=== PATIENT | male | born 1955 | race Caucasian/White ===

== ENCOUNTER 2017-03-02 12:41 | Emergency (ER) | payer MEDICAID ==
[~2017-03-02] VITALS: Ht 177.8 cm; Wt 136.1 kg
[~2017-03-02 12:41] MED LIST: DILANTIN 100MG100 MG PO; FLEXERIL10 M1 PO; FUROSEMIDE 40MG40 M1 PO; KEFLEX 500MG.500 MG PO; LISINOPRIL10 MG PO; LORTAB 500 MG-71 TAB PO; MYSOLINE50 M1 PO; PHENOBARBITAL16.2 MG PO; SEPTRA DS 800 M1 TAB PO; VICODIN 5/500 T1 TAB PO; VOLTAREN75 MG PO
[2017-03-02] MEDS ORDERED: KEPPRA250 MG PO (12:51)
[2017-03-02] MEDS ORDERED: KEPPRA750 MG PO (12:52)
--- NOTE | 2017-03-02 12:53 | Emergency Room Report ---
History of Present Illness Time Seen by [id number] Presenting Problem in Triage Pt arrived:Wheelchair Presenting Problem:PT REPORTS FEELING WEAK X3 DAYS, REPORTS HEADACHE X2 DAYS. 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 N Clinical Suspician of Infection? N Mental Status: 1 - Regular (Normal Baseline) Sepsis Risk:Low Sepsis Risk Have you (or family members/close friends) recently traveled outside the [place]? N If Yes, where/when: Have you had exposure to infectious disease within the past month? N TB? Other? Specify: reports that patient has become progressively weak and confused in the past two weeks, worse over the past two days. He did not eat today. He is not diabetic, but she had a glucometer at home and states his blood sugar was normal. Over the past three days he has been having episodes where he can only walk a few steps then feels diffusely weak, and overall having gaps in memory. He had a headache the last few days, nonfocal, with no unilateral neurological symptoms, and seemed more confused this morning. He has a hx of sz d/o, last sz in 2012, usually tonic clonic, patient at Dr. Rajan, taken off Phenobarb and Dilantin six months ago and placed on Keppra with no recent change in dosing or administratioin. No fever or vomiting, no chest pain. No cough. No omar syncope. Usually ambulates unassisted. ROS obtained primarily from . Source family ALLERGIES Coded Allergies: penicillin G (09/05/15) Home Medications Reported Medications Lisinopril 10 MG PO DAILY 90 Days Furosemide 40 MG PO DAILY 90 Days Levetiracetam (Keppra 750MG) 750 MG PO BID HYDROCODONE 5MG/APAP 325MG (Hydrocodon-Acetaminophen 5-325) 1 TAB PO Q6HP PRN PAIN History Medical History General CAD? No Angina: No NV: No Hypertension? Yes Hyperlipidemia? No CHF? No DVT? No PE? No COPD? No Asthma? No Anemia? No GERD? No Gastric ulcers? No GI Bleed? No Hernia? No Thyroid Problems? No Hypothyroidism? No CVA? No Seizures? Yes Diabetes? No Insulin Dependent: No Insulin Pump: No Home FSBS? No Renal Insuffiency? No End Stage Renal Disease? No UTI? No Stones? No BPH? No GB Disease: No Nephritic Syndrome? No Asplenia? No Hepatitis? No Sickle Cell Disease? No Arthritis? No Migraines? No Cataracts? No Glaucoma? No MRSA? No HIV? No TB? No Anxiety? No Depression? No Cancer? No More? 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" Immunization Hx DT/Tetanus 08/27/05 Flu 2YRSorMore Pneumonia NEVER Surgical Hx Previous Surgery?Y T&A REMOVAL OF PILONIDOL CYST RIGHT ANKLE Family History Family Hx Diabetes No CAD Yes Hypertension Yes Hyperlipidemia No Cancer No TB No Social History Smoking Hx Smoker: Former Smoker Tobacco: No Alcohol Alcohol: No Review of Systems All Other Systems Reviewed and Negative Musculoskeletal see HPI Psychiatric/Neurological see HPI Physical Exam Vital Signs Vital Signs Date Time Temp Pulse Resp B/P Pulse O2 O2 Flow FiO2 Ox Delivery Rate 03/02 1505 98.2 64 20 166/87 97 03/02 1445 77 20 142/72 99 03/02 1406 81 20 165/99 97 03/02 1341 72 20 141/69 97 03/02 1245 98.4 73 20 156/75 96 General Appearance normal appearance, WD/WN, no apparent distress Eye Exam - bilateral eye normal exam, bilateral eye PERRL, bilateral eye EOMI (no diplopia or field cuts) Ear, Nose, Throat hearing grossly normal (port wine stains face) Neck normal inspection, non-tender, supple, full range of motion Respiratory Status Yes: trachea midline, chest symmetrical, non tender chest. No: respiratory distress, tender on palpation, use of accessory muscles, pain on inspiration, pain on expiration, productive cough, non productive cough. Lung Sounds bilateral: normal breath sounds, lungs clear. 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 Glascow Coma Scale Glascow Coma Scale Response Value EYE response: 4 Spontaneously 4 MOTOR response: 6 OBEYS 6 VERBAL response: 5 Oriented & Converses 5 Total 15 Reflexes Reflexes normal No DTR 2+ knee (R), 2+ knee (L), 1+ ankle (R), 3+ ankle (L) (hx ankle surgery) Skin intact, normal color, warm/dry (port wine stains neg rash) Medical Decision Making LABS/Meds/Orders Pt receiving controlled substance in ED? No Results/Orders Laboratory Tests 03/02/17 1355: Urine Color YELLOW, Urine Appearance CLEAR, Urine pH 6.5, Ur Specific [place] 1.025, Urine Protein TRACE H, Urine Ketones NEGATIVE, Urine Blood NEGATIVE, Urine Nitrate NEGATIVE, Urine Bilirubin NEGATIVE, Urine Urobilinogen 0.2, Ur Leukocyte Esterase NEGATIVE, Urine RBC NONE, Urine WBC NONE, Ur Squamous Epith Cells NONE, Urine Bacteria NONE, Urine Glucose NEGATIVE 03/02/17 1255: Phenobarbital Cancelled 03/02/17 1245: Sodium 133 L, Potassium 3.7, Chloride 100, Carbon Dioxide 28, BUN 15, Creatinine 0.8, Estimated Creat Clear 182, Estimated GFR (MDRD) 98, Glucose 112 H, Calcium 9.0, Total Bilirubin 0.6, AST 15, ALT 30, Alkaline Phosphatase 134 H , Creatine Kinase 77, CK-MB (CK-2) Rel Index 0.8, CK and CKMB Interp 0.6, Troponin I < 0.02, Total Protein 7.9, Albumin 3.7, Globulin 4.2 H, Albumin/ Globulin Ratio 0.9 L, WBC 10.0, RBC 4.44 L, Hgb 13.2 L, Hct 39.9 L, MCV 89.9 , RDW 13.2, Plt Count 296, MPV 7.9, Gran % 76.2, Gran # 7.6, Lymphocytes % 17.3, Monocytes % 5.7, Eosinophils % 0.6, Basophils % 0.3, Lymphocytes # 1.7, Monocytes # 0.6, Eosinophils # 0.1, Basophils # 0.0, PUBS MCHC 33.0, MCH 29.7 Orders Procedure Date/time Status DIET-NOTHING BY MOUTH 03/02 D Active URINALYSIS/COMPLETE 03/02 1358 Complete ELECTROCARDIOGRAM REQUEST 03/[address] HEAD REQ 03/02 125 Complete IV SALINE LOCK 03/02 1255 Active CBC WITH AUTO DIFF 03/02 1255 Complete CARDIAC ENZYMES 03/02 1255 Complete CHEM 12 PROFILE 03/02 125 Complete 12 LEAD EKG-TATI (INITIAL) 03/02 UNK Active CM/EKG CM/EKG EKG rate, NSR, rhythm, no evid. of ischemic chgs, no ectopy, normal QRS, normal TX, normal EKG (NSR 72) XRAY/CT/US XRAY/CT/US XRAY chest XR interpretation by reviewed by me Xray Results normal/NAD, no infiltrates, normal lung inflation [place] ( borderline CM vs supine view) Consult MD Physician Consult Consult/PCP Dr. Sharma neuro accepting for transfer Reason Neuro eval/care Comments paged. Departure Departure Time of Disposition 1433 Disposition DC/XFER from ER to [facility] Clinical Impression Primary Impression: Amnesia Secondary Impressions: History of seizure Mental status change Qualifiers: Altered mental status type: somnolence Qualified Code: R40.0 - Somnolence Condition STABLE ED Critical Care Critical Care No at [id number]
[2017-03-02] MEDS ORDERED: HYDROCODONE1 TABLET PO (12:54)
[2017-03-02 13:02] LABS: HEMOGLOBIN 13.2 g/dL (14.1-18.0); LYMPH # 1.7 K/mm3 (0.7-4.5); LYMPH % 17.3 % (10-50)
[2017-03-02 13:25] LABS: BUN 15 mg/dL (7-18)
[2017-03-02 13:40] LABS: GFR (ESTIMATED) 98 ML/MIN (>60)
--- NOTE | 2017-03-02 13:41 | RADIOLOGY REPORT PS360 ---
CT HEAD W/O CONTRAST HISTORY: No change, generalized weakness with slurred speech CHANGE IN MS X 3 DAYS ORDERING PHYSICIAN: Ines Arrgeuin MD PATIENT AGE: 61 years COMPARISON: 04/03/2015 the TECHNIQUE: Axial images obtained without contrast. Brain and bone windows reviewed. FINDINGS: No midline shift, mass effect, intracranial hemorrhage, hydrocephalus, or extra-axial fluid collection is evident. Dense calcification is once again noted involving the left frontal lobe, left occipital lobe, and left occipital parietal region. This is similar when compared to the previous exam. There is mild thickening of the left side of the calvarium. No mastoid effusion or sinus air-fluid level. Lobular soft tissue density is present in the right maxillary sinus nonspecific measuring 10 mm. IMPRESSION: 1. No change with no acute finding. 2. Dense cortical calcification as previously described unchanged. This may be seen with arteriovenous malformation or Sturge-Benz syndrome or could be result of prior hemorrhage, trauma, or infarction. 3. There is no evidence of acute intracranial hemorrhage, focal mass, or acute territorial infarction. A negative CT does not exclude an acute CVA. A follow-up head CT or MRI is recommended if neurological symptoms persist
[2017-03-02 14:09] LABS: URINE BILIRUBIN - DIPSTICK NEGATIVE (NEG); URINE BLOOD NEGATIVE (NEG)
--- NOTE | 2017-03-02 14:25 | RADIOLOGY REPORT PS360 ---
CHEST-PORTABLE HISTORY: Shortness of breath, mental status change change mental status ORDERING PHYSICIAN: Ines Arreguin MD PATIENT AGE: 61 years COMPARISON: To 416 FINDINGS: The cardiomediastinal silhouette and pulmonary vascularity are within normal limits. There are low lung volumes. There is slight increased density in the mid and lower lung zones bilaterally which may be reflection of the poor inspiration. Cannot exclude the possibility of infiltrate. Upright PA and lateral chest may be of further value when the patient can tolerate. No acute bony anomalies. IMPRESSION: Low lung volumes with patchy density in the mid and lower lung zones. Cannot exclude underlying alveolar disease radiographically.
[2017-03-02 15:05] VITALS: BP 166/87
--- OUTSIDE RECORDS SUMMARY | 2017-03-06 05:17 | External Medical Summary Rpt | CCD ---
Author Author , PRADEEP Organization PRADEEP Address Unknown Phone [email or web address] Care Team Providers [facility] Supervisor Name Role Phone A Gabriel VALDOVINOS MD PSC, Petey Unavailable Unavailable Gabriel VALDOVINOS MD PSC ARNOLD KAYCE, ARNOLD Unavailable Unavailable KAYCE ARNOLD KAYCE, ARNOLD Unavailable Unavailable KAYCE BESSON MERVAT, BESSON Unavailable Unavailable MERVAT [facility], [facility] Unavailable Unavailable [facility] Unavailable Unavailable [facility] Unavailable Unavailable SERVICE, [facility] TRES JR, TRES Unavailable Unavailable JR TRES JR, TRES Unavailable Unavailable JR TRES JR CARRIE, Unavailable Unavailable TRES JR CARRIE FEEBACK REE, FEEBACK Unavailable Unavailable REE LEAH NIRAV, LEAH Unavailable Unavailable NIRAV [facility] Unavailable Unavailable INC, [facility] Unavailable Unavailable HOSPITAL P, [facility] BRET QUEEN Unavailable Unavailable BRET TARIQ Unavailable Unavailable OSMAR [facility], Unavailable Unavailable [facility] JOSE L III, JOSE L Unavailable Unavailable III [facility] Un[facility] Unavailable GROUP PS, [facility] Un[facility] Unavailable [facility], [facility] KHAWARI, KHAWARI Unavailable Unavailable KHAWARI MAR, KHAWARI Unavailable Unavailable MAR KILPELA, KILPELA Unavailable Unavailable KILPELA JEA, KILPELA Unavailable Unavailable JEA DERREK DEBORAH, DERREK DEBORAH Unavailable [facility]available [facility] Un[facility], [facility] Unavailable [facility]available [facility], [facility] DIGNA, DIGNA Unavailable Unavailable Herbie Nicolas MD, Unavailable Unavailable Herbie [facility], Unavailable Unavailable [facility], [facility], Unavailable Unavailable [facility] ABDON JENNA, ABDON JENNA Unavailable Unavailable SOTINGEANU IVY, Unavailable Unavailable SOTINGEANU IVY VINAY HENRRY, VINAY Unavailable Unavailable HENRRY SUREKHA KAYCE, SUREKHA Unavailable Unavailable [facility] Un[facility], [facility], Unavailable Unavailable [facility] WALKER FOR, WALKER Unavailable Unavailable FOR YAMIL NIRAV, YAMIL Unavailable Unavailable NIRAV Purpose Continuity of Care Document - 02-09-2013 through 2016 Problems Code Diagnosis DOS Provider Status M2550 PAIN IN 12-28-2016 [place] [facility] M4810 ANKYLOSING 12-28-2016 [place] [facility] HYPEROSTOSI [facility] S SITE [facility] UNSPECIFIED Z791 CUSTODIAL 12-28-2016 [facility] MEDICAL CURR SERV NON-STEROID FOUNDATION AL&ANTI-INF LAMMATORIES [id number] LOC-REL SX 12-24-2016 [facility] W/SPS HOSPITALS INTRACT W/O STAT EPI Q858 OTHER 12-24-2016 [facility] S NOT HOSPITALS ELSEWHERE CLASSIFIED H4089 OTHER 10-21-2016 A Gabriel FERRER MD PSC [place] H409 UNSPECIFIED 10-21-2016 A Gabriel VALDOVINOS [place] PSC U72669 OTHER 10-01-2016 [facility] [place] VITREOUS OPACITIES BILATERAL Z961 PRESENCE OF 10-01-2016 [facility]ES INTRAOCULAR LENS R208 OTHER 09-10-2016 [facility] SENSATION M779 ENTHESOPATH 07-02-2016 [facility] MEDICAL Y SERV UNSPECIFIED FOUNDATION J9811 ATELECTASIS 06-03-2016 [facility] R918 OTHER 06-03-2016 [facility] NONSPECIFIC [facility] ABNORMAL HOSPITALS FINDING OF LUNG FIELD M7989 OTHER 04-29-2016 [place] [facility] SPEC[facility] SOFT TISSUE FOUNDATION DISORDERS G95162 OTHER LONG 04-29-2016 [facility] CURRENT HOSPITALS DRUG THERAPY M160 BILATERAL 03-31-2016 [facility] OSTEOARTHRI FOUNDATION TIS OF HIP M170 BILATERAL 03-31-2016 [facility] OSTEOARTHRI FOUNDATION TIS OF KNEE M1990 UNSPECIFIED 03-31-2016 [facility] OSTEOARTHRI [facility] TIS UNSPECIFIED SITE J80492 EFFUSION 03-31-[address] [facility] HAND R768 OTH SPEC 03-31-2016 [facility] IMMUNOLOGIC AL FIND IN SERUM R809 PROTEINURIA 03-31-2016 [place] [facility] UNSPECIFIED [facility] Z0000 ENCOUNTER 03-31-2016 [facility] W/O ABNORMAL FIND 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 [place] [facility] NON-NEOPLAS SERV TIC NEVUS [facility] R0602 SHORTNESS 02-25-2016 [facility] OF BREATH SERV [facility] R0789 OTHER CHEST 02-25-2016 [facility] PA[facility] Z8679 PERSONAL 02-25-2016 [facility] H[facility] OTH SERV DISEASES FOUNDATION CIRCULATORY SYSTEM D229 MELANOCYTIC 02-07-2016 A Gabriel MCQUEEN MD PSC UNSPECIFIED I10 ESSENTIAL 12-31-2015 [facility] HYPERTENSIO HOLDINGS N R569 UNSPECIFIED 12-31-2015 [facility] CONVULSIONS HOLDINGS Z61811 EFFUSION 11-26-2015 [facility] R609 EDEMA 11-26-2015 [facility] UNSPECIFIED [facility]ICIANS, PLLC F44178 PERSONAL 11-26-2015 [facility] NICOTINE INC DEPENDENCE K95467 EPILEPSY 11-04-2015 [facility] UNS NOT PHYSICIANS INTRACT W/O GROUP STATUS EPILEPTICUS R9401 ABNORMAL 09-18-2015 [facility] PHALOGRAM EEG Z1211 ENCOUNTER 09-05-2015 [facility] SCREENING PHYSICIANS MALIGNANT GROUP NEOPLASM OF COLON R51 HEADACHE 08-22-2015 [facility] G463 BRAIN STEM 08-13-2015 [facility] SYNDROME [id number] UNS ADVERS 08-13-2015 [facility] DRUG/MEDICA MENT INITIAL ENCNTR J069 ACUTE UPPER 08-09-2015 [facility] PH[facility]ANS RESPIRATORY GROUP INFECTION UNSPECIFIED R05 COUGH 06-27-2015 [facility] 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 [facility] SLEEP PHYSICIANS APNEA ADULT GROUP PEDIATRIC L989 DISORDER 06-26-2015 [facility] THE SKIN & PHYSICIANS SUBCUTANEOU GROUP S TISSUE UNS G441 VASCULAR 04-03-2015 [facility] HEADACHE PHYSICIANS, NOT PLLC ELSEWHERE CLASSIFIED M3130 WEGENERS 04-03-2015 [facility] GRANULOMATO SERV SIS W/O FOUNDATION RENAL INVOLVEMENT Q282 ARTERIOVENO 04-03-2015 [facility] P N OF CEREBRAL VESSELS R4781 SLURRED 04-03-2015 [facility] SPEE[facility] R531 WEAKNESS 04-03-2015 [facility] L31503 OTHER 04-02-2015 [facility] CATARACT [facility] RIGHT EYE 4571 OTHER 12-22-2014 [facility] US INC LYMPHEDEMA V571 OTHER 12-22-2014 [facility] THERAPY INC 7906 OTHER 11-15-2014 [facility]AL [facility] BLOOD INC CHEMISTRY 28941 UNSPEC 2013 [facility] EPILEPSY WITHOUT MENTION INTRACT EPILEPSY 7823 EDEMA 2013 [facility] 55325 OBESITY, 10-19-2013 MUNGER UNSPECIFIED [facility] 43062 NUCLEAR 10-19-2013 [place] [facility] SCLEROSIS SERV [facility] 3669 UNSPECIFIED 10-19-2013 [place] [address] OSTEOARTHRO 10-19-2013 [facility] HOSPITAL GEN/LOC UNSPEC SITE V140 PERSONAL 10-19-2013 MUNGER HISTORY OF COMMUNITY ALLERGY TO HOSPITAL PENICILLIN V5869 LONG-TERM 10-19-2013 MUNGER (CURRENT) [facility] USE OF HOSPITAL OTHER MEDICATIONS V8539 BODY MASS 10-19-2013 MUNGER INDEX COMMUNITY 39.0-39.9 HOSPITAL ADULT 94006 TOTAL OR 09-14-2013 [place] [facility] MATURE [facility] SENILE [facility] CATARACT 62504 OTHER 09-14-2013 MUNGER CONVULSIONS [facility] 87582 OTHER 08-01-2013 [facility] DEVRIES MALAISE AND FATIGUE 682.3 682.3 02-09-2013 [place] CELLULITIS [facility] 780.39 780.39 02-09-2013 [facility] Allergies, Adverse Reactions, Alerts Type Drug Allergy Adverse Reaction to Substance Substance Reaction Severity Penicillin Unknown Unknown Medications Na ND Rx Da Fi Fi Am Da Di Ph RX Ph St me C No te ll ll ou ys ag ar # ys at rm s nt no ma ic us Or Da si cy ia de te s n re d PI 00 09 10 60 30 00 OK Ac RO 37 -0 -0 .0 00 L- ti XI 80 9- 6- 00 07 MA ve CA 46 20 20 48 RT M 60 17 17 63 10 1 13 PH AR MG MA CY CA PS #5 UL 91 E AL 00 08 09 60 30 00 WA Ac LE 11 -2 -1 .0 00 L- ti RG 32 0- 5- 00 08 MA ve Y- 01 20 20 84 RT CO 36 17 17 03 NG 0 18 PH ES AR TI MA ON CY RL #5 F 91 12 H TA B IA 00 08 09 12 30 00 OK Ac IM 59 -1 -0 0. 00 L- ti ID 15 1- 8- 00 07 MA ve ON 32 20 20 0 50 RT E 10 17 17 34 25 1 41 PH 0 AR MG MA CY TA BL #5 ET 91 HY 00 08 09 [address] 40 -0 -0 .0 00 L- ti OC 60 7- 1- 00 02 MA ve OD 12 20 20 24 RT ON 30 17 17 14 -A 1 40 PH CE AR TA MA CT CY NO PH #5 EN 91 5- 32 5 PI 00 08 09 60 30 00 WA Ac RO 37 -0 -0 .0 00 L- ti XI 80 8- 1- 00 07 MA ve CA 46 20 20 48 RT M 60 17 17 63 10 1 13 PH AR MG MA CY CA PS #5 UL 91 E LE 31 08 09 60 30 00 WA Ac VE 72 -0 -0 .0 00 L- ti TI 20 6- 1- 00 07 MA ve RA 53 20 20 50 RT CE 81 17 17 22 TA 2 60 PH M AR 75 MA 0 CY MG #5 TA 91 BL ET LE 31 07 08 60 30 00 OK Ac VE 72 -1 -1 .0 00 L- ti TI 20 4- 1- 00 07 MA ve RA 53 20 20 48 RT CE 81 17 17 35 TA 2 53 PH M AR 75 MA 0 CY MG #5 TA 91 BL ET AL 00 07 08 60 30 00 OK Ac LE 11 -1 -1 .0 00 L- ti RG 32 8- 1- 00 08 MA ve Y- 01 20 20 84 RT CO 36 17 17 03 NG 0 18 PH ES AR TI MA ON CY RL #5 F 91 12 H TA B FU 69 07 08 90 90 00 OK Ac RO 31 -1 -1 .0 00 L- ti SE 50 8- 1- [address] 11 20 20 49 RT DE 71 17 17 93 0 76 PH 40 AR MA MG CY TA #5 BL 91 ET IA 00 07 08 12 30 00 OK Ac IM 59 -0 -0 0. 00 L- ti ID 15 8- 4- 00 07 MA ve ON 32 20 20 0 46 RT E 10 17 17 58 25 1 45 PH 0 AR MG MA CY TA BL #5 ET 91 PI 00 07 08 60 30 00 WA Ac RO 37 -1 -0 .0 00 L- ti XI 80 0- 4- 00 07 MA ve CA 46 20 20 48 RT M 60 17 17 63 10 1 13 PH AR MG MA CY CA PS #5 UL 91 E LE 07 60 30 00 WA Ac VE 72 -2 -1 .0 00 L- ti TI 20 0- 4- 00 07 MA ve RA 53 20 20 48 RT CE 81 17 17 35 TA 2 53 PH M AR 75 MA 0 CY MG #5 TA 91 BL ET AL 00 06 07 60 30 00 WA Ac LE 11 -2 -1 .0 00 L- ti RG 32 0- 4- 00 08 MA ve Y- 01 20 20 83 RT CO 36 17 17 90 NG 0 71 PH ES AR TI MA ON CY RL #5 F 91 12 H TA B IA 00 06 06 12 30 00 WA Ac IM 59 -0 -3 0. 00 L- ti ID 15 5- 0- 00 07 MA ve ON 32 20 20 0 46 RT E 10 17 17 58 25 1 45 PH 0 AR MG MA CY TA BL #5 ET 91 PI 00 06 06 60 30 00 WA Ac RO 37 -0 -3 .0 00 L- ti XI 80 5- 0- 00 07 MA ve CA 46 20 20 47 RT M 60 17 17 38 10 1 54 PH AR MG MA CY CA PS #5 UL 91 E LI 68 06 06 90 90 00 OK Ac SI 18 -0 -3 .0 00 L- ti NO 00 5- 0- 00 07 MA ve IA 51 20 20 49 RT IL 40 17 17 18 1 00 PH 10 AR MA MG CY TA #5 BL 91 ET LE 31 05 06 60 30 00 OK Ac VE 72 -1 -1 .0 00 L- ti TI 20 8- 6- 00 07 MA ve RA 53 20 20 48 RT CE 81 17 17 35 TA 2 53 PH M AR 75 MA 0 CY MG #5 TA 91 BL ET AL 00 05 06 60 30 00 OK Ac LE 11 -1 -0 .0 00 L- ti RG 32 7- 9- 00 08 MA ve Y- 01 20 20 83 RT CO 36 17 17 90 NG 0 71 PH ES AR TI MA ON CY RL #5 F 91 12 H TA B IA 00 05 06 12 30 00 WA Ac IM 59 -0 -0 0. 00 L- ti ID 15 9- 2- 00 07 MA ve ON 32 20 20 0 46 RT E 10 17 17 58 25 1 45 PH 0 AR MG MA CY TA BL #5 ET 91 PI 00 05 06 54 27 00 OK Ac RO 37 -0 -0 .0 00 L- ti XI 80 9- 2- 00 07 MA ve CA 46 20 20 47 RT M 60 17 17 38 10 1 54 PH AR MG MA CY CA PS #5 UL 91 E PH 51 04 05 60 30 00 WA Ac EN 29 -2 -1 .0 00 L- ti OB 30 5- 9- 00 04 MA ve AR 62 20 20 52 RT BI 60 17 17 90 TA 1 97 PH L AR 32 MA .4 CY MG #5 91 TA BL ET LE 31 04 05 60 30 00 OK Ac VE 72 -2 -1 .0 00 L- ti TI 20 1- 9- 00 07 MA ve RA 53 20 20 48 RT CE 81 17 17 35 TA 2 53 PH M AR 75 MA 0 CY MG #5 TA 91 BL ET AL 00 04 05 60 30 00 WA Ac LE 11 -1 -1 .0 00 L- ti RG 32 8- 2- 00 08 MA ve Y- 01 20 20 83 RT CO 36 17 17 90 NG 0 71 PH ES AR TI MA ON CY RL #5 F 91 12 H TA B IA 00 04 05 12 30 00 OK Ac IM 59 -0 -0 0. 00 L- ti ID 15 8- 5- 00 07 MA ve ON 32 20 20 0 46 RT E 10 17 17 58 25 1 45 PH 0 AR MG MA CY TA BL #5 ET 91 PI 00 04 04 54 27 00 OK Ac RO 37 -0 -2 .0 00 L- ti XI 80 2- 8- 00 07 MA ve CA 46 20 20 47 RT M 60 17 17 38 10 1 54 PH AR MG MA CY CA PS #5 UL 91 E PH 51 03 04 60 30 00 OK Ac EN 29 -2 -2 .0 00 L- ti OB 30 5- 1- 00 04 MA ve AR 62 20 20 52 RT BI 60 17 17 90 TA 1 97 PH L AR 32 MA .4 CY MG #5 91 TA BL ET LI 54 03 04 90 90 00 OK Ac SI 45 -1 -1 .0 00 L- ti NO 80 6- 4- 00 07 MA ve IA 99 20 20 45 RT IL 71 17 17 73 0 79 PH 10 AR MA MG CY TA #5 BL 91 ET AL 00 03 04 60 30 00 OK Ac LE 11 -1 -1 .0 00 L- ti RG 32 6- 4- 00 08 MA ve Y- 01 20 20 83 RT CO 36 17 17 74 NG 0 84 PH ES AR TI MA ON CY RL #5 F 91 12 H TA B FU 00 03 04 90 90 00 WA Ac RO 78 -1 -0 .0 00 L- ti SE 11 0- 7- [address] 96 20 20 42 RT DE 61 17 17 49 0 13 PH 40 AR MA MG CY TA #5 BL 91 ET PI 29 03 03 60 30 00 WA Ac RO 03 -0 -3 .0 00 L- ti XI 30 2- 1- 00 07 MA ve CA 01 20 20 47 RT M 20 17 17 38 10 1 54 PH AR MG MA CY CA PS #5 UL 91 E IA 00 03 03 12 30 00 WA Ac IM 59 -0 -3 0. 00 L- ti ID 15 7- 1- 00 07 MA ve ON 32 20 20 0 46 RT E 10 17 17 58 25 1 45 PH 0 AR MG MA CY TA BL #5 ET 91 AL 00 02 03 60 30 00 OK Ac LE 11 -1 -1 .0 00 L- ti RG 32 4- 0- 00 08 MA ve Y- 01 20 20 83 RT CO 36 17 17 74 NG 0 84 PH ES AR TI MA ON CY RL #5 F 91 12 H TA B PH 51 02 03 60 30 00 OK Ac EN 29 -1 -1 .0 00 L- ti OB 30 2- 0- 00 04 MA ve AR 62 20 20 52 RT BI 60 17 17 90 TA 1 97 PH L AR 32 MA .4 CY MG #5 91 TA BL ET IA 00 02 03 90 30 00 OK Ac ED 14 -0 -1 .0 00 L- ti NI 39 9- 0- 00 07 MA ve SO 74 20 20 46 RT NE 01 17 17 96 5 0 82 PH AR MG MA CY TA BL #5 ET 91 PH 65 02 03 12 30 00 OK Ac EN 16 -0 -0 0. 00 L- ti YT 20 6- 3- 00 07 MA ve OI 21 20 20 0 46 RT N 25 17 17 58 SO 0 79 PH D AR EX MA T CY 10 0 #5 MG 91 CA P IA 00 02 03 12 30 00 WA Ac IM 59 -0 -0 0. 00 L- ti ID 15 6- 3- 00 07 MA ve ON 32 20 20 0 46 RT E 10 17 17 58 25 1 45 PH 0 AR MG MA CY TA BL #5 ET 91 PH 65 01 02 12 30 00 OK Ac EN 16 -1 -1 0. 00 L- ti YT 20 4- 0- 00 07 MA ve OI 21 20 20 0 45 RT N 25 17 17 86 SO 0 80 PH D AR EX MA T CY 10 0 #5 MG 91 CA P PH 51 01 02 60 30 00 WA Ac EN 29 -1 -1 .0 00 L- ti OB 30 5- 0- 00 04 MA ve AR 62 20 20 52 RT BI 60 17 17 90 TA 1 39 PH L AR 32 MA .4 CY MG #5 91 TA BL ET IA 00 01 02 90 30 00 WA Ac ED 14 -1 -1 .0 00 L- ti NI 39 2- 0- 00 07 MA ve SO 74 20 20 45 RT NE 01 17 17 70 5 0 00 PH AR MG MA CY TA BL #5 ET 91 IA 00 12 01 12 30 00 WA Ac IM 59 -2 -2 0. 00 L- ti ID 15 9- 7- 00 07 MA ve ON 32 20 20 0 45 RT E 10 16 17 49 25 1 57 PH 0 AR MG MA CY TA BL #5 ET 91 AL 00 12 01 60 30 00 OK Ac LE 11 -2 -2 .0 00 L- ti RG 32 9- 7- 00 08 MA ve Y- 01 20 20 83 RT CO 36 16 17 74 NG 0 84 PH ES AR TI MA ON CY RL #5 F 91 12 H TA B PH 65 12 01 12 30 00 OK Ac EN 16 -1 -1 0. 00 L- ti YT 20 5- 3- 00 07 MA ve OI 21 20 20 0 45 RT N 25 16 17 86 SO 0 80 PH D AR EX MA T CY 10 0 #5 MG 91 CA P PH 51 12 01 60 30 00 OK Ac EN 29 -1 -1 .0 00 L- ti OB 30 8- 3- 00 04 MA ve AR 62 20 20 52 RT BI 60 16 17 85 TA 1 10 PH L AR 32 MA .4 CY MG #5 91 TA BL ET LI 54 12 01 90 90 00 OK Ac SI 45 -0 -0 .0 00 L- ti NO 80 8- 9- 00 07 MA ve IA 99 20 20 45 RT IL 71 16 17 73 0 79 PH 10 AR MA MG CY TA #5 BL 91 ET LI 00 09 0 No DO 40 -1 CA 94 9- Lo IN 27 20 ng E 90 13 er HC 2 L Ac 1% ti ve AL Sa 63 09 0 No li 80 -1 ne 70 9- Lo 10 20 ng Fl 07 13 er us 5 h Ac 10 ti ML ve Sy ri ng e RAMSEY 51 09 0 No LF 07 -1 AM 90 9- Lo ET 12 20 ng HO 82 13 er XA 0 ZO Ac LE ti -T ve MP DS TA BL ET AC 51 09 0 No ET 07 -1 AM 90 9- Lo IN 16 20 ng OP 19 13 er HE 9H N Ac W/ ti CO ve DE IN E #3 TA K CL 00 09 0 No IN 40 -1 DA 94 9- Lo MY 05 20 ng CI 50 13 er N 3 15 Ac 0 ti MG ve /M L AD DV AN SO 00 09 0 No DI 40 -1 UM 97 9- Lo 10 20 ng CH 16 13 er LO 7 RI Ac DE ti ve 0. 9% SO LN Vital Signs 02-09-2013 22:47 Name Value Interpretat Reference Comment ion Range BP 70 mm[Hg] Diastolic BP Systolic 124 mm[Hg] Heart 75 /min Rate/Pulse O2% 98 % Respiratory 18 /min Rate 02-09-2013 20:58 Name Value Interpretat Reference Comment ion Range BP 76 mm[Hg] Diastolic BP Systolic 122 mm[Hg] Heart 80 /min Rate/Pulse O2% 98 % Respiratory 20 /min Rate Results Labs Lab Lab Date Result Refere Interp Status Commen Order Detail nces retati t Range on COMPREHENSIVE METABOLIC PANEL (02-09-2013 21:30) Glucose 81 74-106 complet 013 mg/dL ed Bld-mCn 21:30 c BUN 11 7-18 complet Bld-mCn 013 mg/dL ed c 21:30 Creat 0.9 0.8-1.3 complet SerPl-m 013 mg/dL ed Cnc 21:30 ESTIMAT 153 50-200 complet ED 013 ML/MIN ed CREATIN 21:30 INE CLEARAN CE GFR 86 Greater complet (ESTIMA 013 ML/MIN than ed ISABELA) 21:30 60 Sodium 140 136-145 complet SerPl-s 013 mmoL/L ed Cnc 21:30 Potassi 3.4 3.5-5.1 complet um 013 mmoL/L ed SerPl-s 21:30 Cnc Chlorid 104 98-107 complet e 013 mmoL/L ed SerPl-s 21:30 Cnc CO2 27 21.0-32 complet SerPl-s 013 mmoL/L .0 ed Cnc 21:30 Calcium -19-2 8.1 8.5-10. complet 013 mg/dL 1 ed SerPl-m 21:30 Cnc Prot 19-2 7.9 6.4-8.2 complet SerPl-m 013 gm/dL ed Cnc 21:30 Albumin 19-2 3.5 3.4-5.0 complet 013 gm/dL ed SerPl-m 21:30 Cnc Globuli 02-09-2 4.4 1.3-3.2 complet n 013 gm/dL ed Ser-mCn 21:30 c Albumin 02-09-2 0.8 UNK 1.1-1.8 complet /Glob 013 ed SerPl-m 21:30 Rto Bilirub 02-09-2 0.2 0.2-1.0 complet 013 mg/dL ed SerPl-m 21:30 Cnc AST 02-09-2 15 U/L 15-37 complet SerPl-c 013 ed Cnc 21:30 ALT 02-09-2 34 U/L 30-65 complet SerPl-c 013 ed Cnc 21:30 ALP 02-09-2 171 U/L 50-136 complet SerPl-c 013 ed Cnc 21:30 CBC with AUTO DIFF (02-09-2013 21:30) WBC # -19-2 7.3 4.8-10. complet Bld 013 K/MM3 8 ed Auto 21:30 RBC # 19-2 4.57 4.6-6.2 complet Bld 013 M/mm3 ed Auto 21:30 Hgb 02-09-2 14.2 14.1-18 complet Bld-mCn 013 g/dL .0 ed c 21:30 Hct Fr 02-09-2 42.3 % 42.0-52 complet Bld 013 .0 ed 21:30 MCV RBC 02-09-2 92.5 fl 82.2-97 complet 013 .8 ed 21:30 MCH RBC 02-09-2 31.1 pg 27-31.2 complet Qn 013 ed Auto 21:30 MEAN 02-09-2 33.6 31.8-35 complet CORPUSC 013 g/dl .4 ed ULAR 21:30 HGB CONC RDW RBC 02-09-2 15.1 % 11.5-17 complet Auto 013 .5 ed 21:30 Platele 09-19-2 260 142-424 complet t Bld 013 K/mm3 ed Ql 21:30 Manual MEAN -19-2 7.8 fl 7.4-10. complet PLATELE 013 4 ed T 21:30 VOLUME Granulo 09-19-2 64.2 % 37.0-80 complet cytes 013 .0 ed Fr Bld 21:30 Auto LYMPH % 09-19-2 25.5 % 10-50 complet 013 ed 21:30 Monocyt 09-19-2 7.6 % 1.7-9.3 complet es Fr 013 ed Bld 21:30 Auto Eosinop 09-19-2 2.0 % 0.1-12. complet hil Fr 013 0 ed Bld 21:30 Auto Basophi 09-19-2 0.7 % 0.1-2.0 complet ls Fr 013 ed Bld 21:30 Auto Granulo 09-19-2 4.7 1.3-8.0 complet cytes # 013 K/mm3 ed Bld 21:30 Auto Lymphoc 09-19-2 1.9 0.7-4.5 complet ytes Fr 013 K/mm3 ed Bld 21:30 Auto Monocyt 09-19-2 0.6 0.1-1.0 complet es # 013 K/mm3 ed Bld 21:30 Auto Eosinop 09-19-2 0.2 0.0-0.4 complet hil # 013 K/mm3 ed Bld 21:30 Auto Basophi 09-19-2 0.1 0-0.2 complet ls # 013 K/MM3 ed Bld 21:30 Auto GLYCOHEMOGLOBIN (A1c) (02-09-2013 21:30) HEMOGLO 09-19-2 5.5 % 0.0-7.0 complet BIN A1C 013 ed 21:30 Procedures Procedure DOS Code Location Performer Comment [facility] [address] TRES TRES MEDICAL 7 JR JR XM&EVAL INTERMEDI ATE ESTAB PT [facility] [place] [address] [place] W/O 7 MEDICAL CONTRAST SERV MATERIAL FOUNDAT[facility] N COLLECTIO 19578 [facility] N VENOUS 6 [facility] [place] U[place] CALCI[place] 63129 [facility] IONIZED 6 [facility] [place] [address] [facility] MAGNESIUM 6 [facility] [place] [address] [facility] PARATHORM 6 [facility] [place] [address] [place] [facility] PHOSPHORU 6 [facility]CAR S E [place] [address] [facility] SOMATOMED 6 [facility] [place] [address] [facility] THYROID 6 [facility] STIMULATI E E NG [facility] TSH RADEX 23273 [place] [facility] SPINE 6 MEDICAL HENRRY LUMBOSACR SERV AL 2/3 FOUNDATIO VIEWS N RADEX 33818 [place] WRIST 2 6 MEDICAL HENRRY VIEWS SERV FOUNDATIO N RADEX 88464 [facility] ANKLE 6 Y Y COMPLETE [facility] MINIMUM 3 VIEWS RADEX 04443 [facility] FOOT 6 Y Y [facility] MINIMUM 3 VIEWS URNLS DIP 08054 [facility] 6 Y Y STICK/TAB [facility] LET REAGENT AUTO MICROSCOP Y RADEX 15372 [facility] HAND 2 6 Y Y VIEWS [facility] RADEX 57948 [place] [facility] HIPS 6 MEDICAL [facility]EN[facility] BILATERAL SERV WITH FOUNDATIO PELVIS 2 N VIEWS PROTEIN 13980 [facility] 6 Y Y ORETIC [facility] FRACTJ&QU ANTJ SERUM PROTEIN 16437 [facility] ELECTROP 6 Y Y FXJ&SHAILA [facility] [place] [address] [facility] ALDOLASE 6 Y Y [facility] CREATINE 92501 [facility] KINASE 6 Y Y TOTAL [facility]OSPITAL PROTEIN 46801 [facility] TOTAL 6 Y Y XCPT [facility] REFRACTOM ETRY URINE RADIOLOGI 57962 [facility]/2 VIEWS COLLECTIO 55783 [facility] N VENOUS 6 Y Y BLOOD [facility] VENIPUNCT URE C-REACTIV 33772 [facility] E PROTEIN 6 Y Y [facility] RADIOLOGI 20790 [facility] C EXAM 6 Y Y SACROILIA [facility] C JOINTS 3/MORE VIEWS RADEX 93997 [facility] SHOULDER 6 Y [facility] MINIMUM 2 VIEWS BLOOD 36563 [facility] COUNT 6 Y Y [facility] AUTO&AUTO DIFRNTL WBC RADIOLOGI 58798 [facility]TH[facility] LOBO C EXAM 6 MEDICAL NIRAV CHEST 2 SERV VIEWS FOUNDATIO FRONTAL&L N ATERAL SEDIMENTA 25163 [facility] TION RATE 6 Y Y RBC HOSPITAL HOSPITAL AUTOMATED ANTINUCLE 00393 [facility] AR 6 Y Y ANTIBODIE [facility] S LULA FLUORESCE 24709 [facility] NT 6 Y Y NONNFCT [facility] AGT ANTB SCREEN EA ANTIBODY C-REACTIV 52929 [facility] E PROTEIN 6 Y Y HOSPITAL HOSPITAL SYPHILIS 83459 [facility] TEST 6 Y [facility] N[facility]TIBODY QUAL COLLECTIO 31066 [facility] N VENOUS 6 Y Y BLOOD [facility] VENIPUNCT URE RHEUMATOI 91415 [facility] D FACTOR 6 Y Y QUANTITAT [facility] MATTY HEPATITIS 36353 [facility] C 6 Y Y [facility] HOSPITAL SEDIMENTA 38853 [facility] TION RATE 6 Y Y RBC [facility] AUTOMATED COMPLEMEN 48332 [facility] T ANTIGEN 6 Y Y EACH [facility]OSPITAL HOSPITAL COMPONENT CYCLIC 89153 [facility] CITRULLIN 6 Y Y ATED [facility] PEPTIDE ANTIBODY EXTRACTAB 79889 [facility] LE 6 Y Y [facility]UCLEAR [facility] ANTIGEN ANTIBODY ANY METHOD HEPATITIS 35589 [facility] B CORE 6 Y [facility] [place] [address] [facility] Y B [facility]OSPITAL SURFACE ANTIGEN BLOOD 74335 [facility] COUNT 6 Y Y [facility] AUTO&AUTO DIFRNTL WBC COMPREHEN 50559 [facility] SIVE 6 Y Y [facility] HOSPITAL PANEL URNLS DIP 03691 [facility] 6 Y Y STICK/TAB [facility] HOSPITAL LET RGNT AUTO W/O MICROSCOP Y DUP-SCAN 57808 [facility] MYERS ALL XTR VEINS 6 [facility] [place] ASS [place] [address] [facility] BLOOD/URI 6 [facility] C ACID [facility] COMPREHEN 76721 [facility] SIVE 6 [facility] METABOLIC [facility] PANEL BLOOD 73570 [facility] COUNT 6 [facility] COMPLETE [facility] AUTO&AUTO DIFRNTL WBC SEDIMENTA 62888 [facility] TION RATE 6 [facility] RBC [facility] HOLD[facility] AUTOMATED C-REACTIV 65664 [facility] E PROTEIN 6 [facility] RHEUMATOI 90233 [facility] D FACTOR 6 [facility] QUANTITAT [facility] MATTY ANTINUCLE 10503 [facility] AR 6 [facility] ANTIBODIE HOLDINGS HOLDINGS S LULA LIPID 10998 A Gabriel FUENTES PANEL 6 ARUNA TODD JEPetey PSC RADEX 33304 [facility] MYERS ALL ELBOW 2 6 MEDICAL VIEWS IMAGING ASS HEMOGLOBI 44801 A C GINA N 6 ARUNA FRAUSTO GLYCOSYLA PSC ISABELA A1C RADEX 57446 [facility] NUR ELBOW 6 [facility] COMPLETE INC INC MINIMUM 3 VIEWS THERAPEUT 75464 [facility] NUR IC 6 [facility] PROPHYLAC INC INC TIC/DX INJECTION SUBQ/IM UNCLASSIF [id number] [facility] IED DRUGS 6 [facility] INC INC COLLECTIO 51278 [facility] N[facility] N VENOUS 6 [facility] BLOOD INC INC VENIPUNCT URE DRUG 88840 [facility] SCREEN 6 [facility] QUANTITAT INC INC [place] PHENYTOIN TOTAL ELECTROEN 08695 [facility] 6 Y Y AM W/REC HOSPITAL HOSPITAL AWAKE&ASL EEP COLONOSCO 93052 [facility] MATILDE PY FLX DX 6 PHYSICIAN CAM W/LANI S GROUP SPEC WHEN PFRMD ANES 10884 [facility] FEEBACK LOWER 6 ANESTH REE INTESTINE OF THE BLUE ENDOSCOPY DISTAL DUODENUM UNCLASSIF [id number] BOOM N[facility] IED DRUGS 6 [facility] INC INC MRI BRAIN 40776 SARTHAK CABRERA BRAIN 6 MEDICAL STEM W/O SERV W/CONTRAS FOUNDATIO T N MATERIAL DXA BONE 59607 [facility] DENSITY 6 Y Y STUDY 1/> HOSPITAL HOSPITAL SITES AXIAL SKEL INJECTION A9585 [facility] 6 Y Y [facility] L 0.1 ML COMPREHEN 08688 [facility] 6 Y Y [facility] PANEL DRUG 63722 [facility] SCREEN 6 Y Y [facility] [place] PHENOBARB ITAL CYANOCOBA 99760 [facility] 6 Y Y [facility] B-12 BLOOD 42920 [facility] COUNT 6 Y Y [facility] AUTOMATED DRUG 39643 [facility] SCREEN 6 Y Y [facility] [place] PHENYTOIN TOTAL COLLECTIO 94222 [facility] N VENOUS 6 Y Y [facility] VENIP[facility] URE COMPREHEN 27244 [facility] N[facility] SIVE 6 [facility] METABOLIC INC INC PANEL RADIOLOGI 71300 [place] [facility] C EXAM 6 MEDICAL CHEST 2 IMAGING VIEWS ASS FRONTAL&L ATERAL BLOOD 13994 [facility] COUNT 6 [facility] COMPLETE INC INC AUTO&AUTO DIFRNTL WBC DRUG 72406 [facility] SCREEN 6 [facility] QUANTITAT INC INC [place] PHENYTOIN TOTAL COLLECTIO 58970 [facility] N[facility] N VENOUS 6 [facility] BLOOD INC INC VENIPUNCT URE HEMOGLOBI 29999 [facility] NUR N 6 [facility] GLYCOSYLA INC INC ISABELA A1C NATRIURET 71916 [facility] N[facility] IC 6 [facility] [place] [address] BO[facility] NUR TROPONIN 5 [facility] [place] [address] [facility] 5 Y Y HY [facility] W/CONTRAS T/NONCONT RAST CREATINE 71848 BOOM NUR KINASE MB 5 [facility] FRACTION INC INC ONLY CREATINE 53361 [facility] N[facility] KINASE 5 [facility] TOTAL INC INC ECG 13262 [facility] N[facility] ROUTINE 5 [facility] ECG INC INC W/LEAST 12 LDS TRCG ONLY W/O I&[place] [address] BOOM NUR HEAD/BRAI 5 [facility] N W/O INC INC CONTRAST MATERIAL GROUND A0425 [facility] PER SERVICE SERVICE STATUTE MILE BLOOD 31002 [facility] N[facility] COUNT 5 [facility] COMPLETE INC INC AUTO&[place] [address] [facility] 5 Y Y [facility] W/CONTRAS T/NONCONT RAST ECG 52417 BOOM DIMAS ROUTINE [address] [facility] W/LEAST P 12 LDS I&R ONLY RADIOLOGI 62715 BOOM NUR C EXAM 5 [facility] CHEST 2 INC INC VIEWS FRONTAL&L ATERAL COMPREHEN 15829 [facility] N[facility] SIVE 5 [facility] METABOLIC INC INC PANEL LOCM Q9967 [phone] 5 Y Y MG/ML HOSPITAL HOSPITAL IODINE CONCENTRA TION PER ML THROMBOPL 59798 [facility] NUR ASTIN 5 [facility] TIME INC INC PARTIAL PLASMA/WH OLE BLOOD POST-WALESKA 08389 SARTHAK JOSHUA RACT 5 MEDICAL JR LASER SERV SURGERY FOUNDATIO N THERAPEUT 19710 BOOM NUR IC PX 1/> 5 [facility] AREAS INC INC EACH 15 MIN EXERCISES MANUAL 14551 [facility] NUR THERAPY 5 [facility] TQS 1/> INC INC REGIONS EACH 15 MINUTES MANUAL 88343 BO[facility] NUR THERAPY 5 [facility] TQS 1/> INC INC REGIONS EACH 15 MINUTES THERAPEUT 74301 BOOM BOOM IC PX 1/> 5 [facility] AREAS INC INC EACH 15 MIN EXERCISES THERAPEUT [address]59 BOOM [address]RE[address]ON IC PX 1/> 5 [facility] AREAS INC INC EACH 15 MIN EXERCISES MANUAL 89285 BOOM NUR THERAPY 5 [facility] TQS 1/> INC INC REGIONS EACH 15 MINUTES MANUAL 14612 BOOM BOOM THERAPY 5 [facility] TQS 1/> INC INC REGIONS EACH 15 MINUTES THERAPEUT 29629 BOOM NUR IC PX 1/> 5 [facility] AREAS INC INC EACH 15 MIN EXERCISES THERAPEUT [address]59 BO[facility] [address]ON IC PX 1/> 5 [facility] AREAS INC INC EACH 15 MIN EXERCISES MANUAL [address] [facility]ON THERAPY 5 [facility] TQS 1/> INC INC REGIONS EACH 15 MINUTES MANUAL 11387 BOOM BOOM THERAPY 5 [facility] TQS 1/> INC INC REGIONS EACH 15 MINUTES THERAPEUT [address] BO[address]ON IC PX 1/> 5 [facility] AREAS INC INC EACH 15 MIN EXERCISES THERAPEUT [address]443 BOOM [address]ON IC PX 1/> 5 [facility] AREAS INC INC EACH 15 MIN EXERCISES MANUAL [address] THERAPY 5 [facility] TQS 1/> INC INC REGIONS EACH 15 MINUTES MANUAL [address] THERAPY 5 [facility] TQS 1/> INC INC REGIONS EACH 15 MINUTES ORTHOTIC 63575 BOOM NUR MGMT&GEOVANNI 5 [facility] CA UXTR INC INC LXTR&/TRN K EA 15 MANUAL 19805 BOOM NUR THERAPY 5 [facility] TQS 1/> INC INC REGIONS EACH 15 MINUTES MANUAL 87015 BOOM NUR THERAPY 5 [facility] TQS 1/> INC INC REGIONS EACH 15 MINUTES MANUAL [address] THERAPY 5 [facility] TQS 1/> INC INC REGIONS EACH 15 MINUTES MANUAL 09958 BOOM BOOM THERAPY 5 [facility] TQS 1/> INC INC REGIONS EACH 15 MINUTES PHYSICAL 82345 BOOM NUR THERAPY 5 [facility] [place] [address] BOOM NUR THYROXINE 5 [facility] [place] [address] BOOM NUR THYROID 5 [facility] STIMULATI INC INC NG HORMONE TSH BLOOD 22139 BOOM NUR COUNT 5 [facility] COMPLETE INC INC AUTO&AUTO DIFRNTL WBC HEMOGLOBI 06406 BOOM NUR N 5 [facility] GLYCOSYLA INC INC ISABELA A1C LIPID 55536 BOOM NUR PANEL 5 [facility] INC INC COMPREHEN 69707 BOOM NUR SIVE 5 [facility] METABOLIC INC INC PANEL COLLECTIO 74476 BOOM NUR N VENOUS 5 [facility] BLOOD INC INC VENIPUNCT URE CATARACT 91133 SARTHAK TRES REMOVAL 4 [facility] INSERTION SERV OF LENS FOUNDATIO RINGERS J7120 [facility] [address] [place] [address] UP TO 1000 CC INJECTION J3010 [facility] F[facility] [address] [place] [address] 0.1 MG INJECTION J2001 [address] HCL INTRAVENO US INFUS 10 MG ANESTHESI 32821 [place] [facility] A EYE 4 ANESTHESI LENS A GROUP SURGERY PS ANESTHESI 00084 [place] SURE[place]HA A EYE 4 ANESTHESI KAYCE LENS A GROUP SURGERY PS RINGERS J7120 [facility] [address] [place] [address] UP TO 1000 CC INJECTION J2001 [address] HCL INTRAVENO US INFUS 10 MG INJECTION J3010 [facility] [address] [place] [address] 0.1 MG INJECTION J2405 [address] ON HCL PER 1 MG CATARACT 93425 SARTHAK TRES REMOVAL 4 [facility] INSERTION SERV OF LENS FOUNDATIO INJECTION J2250 [facility] HCL PER 1 MG Encounters Encounter Start End Date Code Location Performer Type Date OFFICE 78674 SARTHAK DOMINGO OUTPATIEN 7 7 MEDICAL III T VISIT SERV 25 FOUNDATIO MINUTES N OFFICE 85177 OUTPATIEN 7 7 [facility] T VISIT 5 E MINUTES [facility]ITALS OFFICE 78880 SARTHAK QUEEN OUTPATIEN 7 7 MEDICAL T VISIT SERV 15 FOUNDATIO MINUTES N [facility] OUTPATI[facility] E T [facility]PITALS OFFICE 77292 Petey Rios [place] OUTPATI[facility] 7 7 VALDOVINOS MD T VISIT PSC 15 MINUTES OFFICE 04161 OUTPATIEN 7 7 [facility] T VISIT 5 E MINUTES HOSPITALS OFFICE 76933 SARTHAK QUEEN OUTPATIEN 7 7 MEDICAL T VISIT SERV 25 FOUNDATIO MINUTES [facility] OUTPATI[facility] T [facility] OFFICE 14704 SARTHAK PICKARD OUTPATIEN 7 7 MEDICAL T VISIT SERV 25 FOUNDATIO MINUTES [facility] OUTPATIEN E T [facility]PITALS OFFICE 09152 SARTHAK QUEEN OUTPATIEN 7 7 MEDICAL T VISIT SERV 25 FOUNDATIO MINUTES N OFFICE 50479 OUTPATIEN 7 7 HEALTHCAR T VISIT 5 E MINUTES [facility] - 7 7 [facility] OUTPATIEN E T HOSPITALS OFFICE 88734 SARTHAK MEEKSAIMEERI OUTPATIEN 6 6 MEDICAL MAR T VISIT SERV 25 FOUNDATIO MINUTES [facility] - 6 6 [facility]PITAL T OFFICE 95774 SARTHAK NEERAJ OUTPATIEN 6 6 MEDICAL MAR T VISIT SERV 25 FOUNDATIO MINUTES HOSPITAL [facility] - 6 6 Y [facility] T OFFICE 75706 [place] K[facility] CONSULTAT 6 6 MEDICAL MAR ION SERV NEW/ESTAB FOUNDATIO PATIENT N 40 MIN OFFICE 90953 A C [facility] OUTPATIEN 6 6 ARUNA FRAUSTO T VISIT PSC 15 MINUTES HOSPITAL BOOM - 6 6 [facility] OUTPATIEN INC T OFFICE 48229 A C [place] OUTPATIEN 6 6 ARUNA FRAUSTO T NEW 30 PSC MINUTES HOSPITAL BOOM - 6 6 [facility] OUTPATIEN INC T EMERGENCY 46369 ANJANA CORLEY 6 6 PHYSICIAN U IVY [facility] S, [facility] T VISIT MODERATE SEVERITY EMERGENCY 85281 BOOM 6 6 [facility] T VISIT LOW/MODER SEVERITY HOSPITAL BOOM - 6 6 [facility] OUTPATIEN [facility] T [facility] 55464 [facility] NIRAV T VISIT S GROUP 15 MINUTES [facility] BOOM - 6 6 [facility] OUTPATIEN [facility] T OFFICE 61145 [facility] OUTPATIEN 6 6 PHYSICIAN NIRAV T VISIT S GROUP 15 MINUTES [facility] - [facility] OUTPATIEN [facility] T OFFICE 63186 [facility]UL[facility]AD OUTPATIEN 6 6 PHYSICIAN CAM T NEW 30 S GROUP MINUTES [facility] UNIVERSIT - 6 6 Y [facility] T OFFICE 75427 [place] [facility] OUTPATIEN 6 6 MEDICAL OSMAR T NEW 45 SERV MINUTES FOUNDATIO N OFFICE 42915 [facility] Y T [facility]ISIT 5 HOSPITAL [facility] UNIVERSIT - [address] [facility] T OFFICE 88180 [facility] 6 6 PHYSICIAN NIRAV T VISIT S GROUP 15 MINUTES HOSPITAL BOOM - 6 6 [facility] 45641 [facility] 6 6 PHYSICIAN NIRAV T VISIT S GROUP 25 MINUTES EMERGENCY 11444 BOOM 5 5 [facility] T VISIT HIGH/URGE NT SEVERITY [facility] UN[facility]ERS[facility] - 5 5 [facility] EMERGENCY 17287 ANJANA BRYANT DEPT 5 5 PHYSICIAN FOR VISIT S, [facility] HIGH SEVERITY& THREAT [facility] BOOM - 5 5 [facility] BO[facility] - 5 5 [facility] BOOM [facility] 5 5 [facility] 01832 LIAN UNDERWOOD 4 4 KAYCE KAYCE T VISIT 15 MINUTES [facility] - 4 4 [facility] [address] [facility] T OFFICE 05608 LIAN UNDERWOOD 4 4 KAYCE KAYCE T VISIT 15 MINUTES Emergency GABBY Nicolas MD (ER) 3 20:25 3 22:48 [facility]
--- OUTSIDE RECORDS SUMMARY | 2017-03-06 05:17 | External Medical Summary Rpt | CCD ---
Author Author , PRADEEP Organization PRADEEP Address Unknown Phone [email or web address] Dharma Care Team Providers Care Oracle Adf Consultant Name Role Phone A Gabriel VALDOVINOS MD PSC, Petey Unavailable Unavailable Gabriel VALDOVINOS MD PSC ARNOLD KAYCE, ARNOLD Unavailable Unavailable KAYCE ARNOLD KAYCE, ARNOLD Unavailable Unavailable KAYCE BESSON MERVAT, BESSON Unavailable Unavailable MERVAT MYERS ALL, MYERS ALL Unavailable Unavailable [facility] Unavailable Unavailable [facility], [facility] Unavailable Unavailable SERVICE, [facility] TRES JR, TRES Unavailable Unavailable JR TRES JR, TRES Unavailable Unavailable JR TRES JR CARRIE, Unavailable Unavailable TRES JR CARRIE FEEBACK REE, FEEBACK Unavailable Unavailable REE LEAH NIRAV, LEAH Unavailable Unavailable NIRAV [facility] Unavailable Unavailable INC, [facility], [facility] Unavailable Unavailable BRET TARIQ Unavailable Unavailable OSMAR [facility], Unavailable Unavailable [facility] JOSE L III, JOSE L Unavailable Unavailable III [facility] Unavailable Unavailable GROUP PS, [facility] Unavailable Unavailable [facility], [facility] KHAWARI, KHAWARI Unavailable Unavailable [...] [facility] Unavailable [facility], [facility], Unavailable Unavailable [facility] WALKER FOR, WALKER Unavailable Unavailable FOR YAMIL NIRAV, YAMIL Unavailable Unavailable NIRAV Purpose Continuity of Care Document - 02-09-2013 through 2016 Problems Code Diagnosis DOS Provider Status M2550 PAIN IN 12-28-2016 [place] [facility] U[facility]PECIF[facility] SERV JOINT [facility] M4810 ANKYLOSING 12-28-2016 [place] [facility] HYPEROSTOSI SERV S SITE FOUNDATION UNSPECIFIED Z791 ALF 12-28-2016 [facility] CURR SERV NON-STEROID FOUNDATION AL&ANTI-INF LAMMATORIES J58565 LOC-REL SX 12-24-2016 [facility] W/SPS HOSPITALS INTRACT W/O STAT EPI Q858 OTHER 12-24-2016 [facility] S NOT HOSPITALS ELSEWHERE CLASSIFIED H4089 OTHER 10-21-2016 A Gabriel FERRER MD PSC [place] H409 UNSPECIFIED 10-21-2016 A Gabriel VALDOVINOS [place] PSC H26330 OTHER 10-01-2016 [facility] [place] VITREOUS OPACITIES BILATERAL Z961 PRESENCE OF 10-01-2016 [facility] INTRAOCULAR LENS R208 OTHER 09-10-2016 [facility] M779 ENTHESOPATH 07-02-2016 [facility] MED[facility] Y SERV UNSPECIFIED FOUNDATION J9811 ATELECTASIS 06-03-2016 [place] [facility] R918 OTHER 06-03-2016 [facility] NONSPECIFIC [facility] ABNORMAL HOSPITALS FINDING OF LUNG FIELD M7989 OTHER 04-29-2016 [place] [facility] SPECIFIED SERV SOFT TISSUE FOUNDATION DISORDERS Q81964 OTHER LONG 04-29-2016 [facility]M [facility] CURRENT HOSPITALS DRUG THERAPY M160 BILATERAL 03-31-2016 [place] [facility] PRIMARY SERV OSTEOARTHRI FOUNDATION TIS OF HIP M170 BILATERAL 03-31-2016 [facility] OSTEOARTHRI FOUNDATION TIS OF KNEE M1990 UNSPECIFIED 03-31-2016 [facility] OSTEOARTHRI [facility]ATION TIS UNSPECIFIED SITE N81506 EFFUSION 03-31-2016 [facility] HAND R768 OTH SPEC 03-31-2016 [facility] IMMUNOLOGIC AL FIND IN SERUM R809 PROTEINURIA 03-31-2016 [place] [facility] UNSPECIFIED FOUNDATION Z0000 ENCOUNTER 03-31-2016 [facility] EX[facility] W/O ABNORMAL FIND 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 [place] [facility] NON-NEOPLAS SERV TIC NEVUS FOUNDATION R0602 SHORTNESS 02-25-2016 [place] [facility] OF BREATH SERV [facility] R0789 OTHER CHEST 02-25-2016 [facility] PAIN [facility] Z8679 PERSONAL 02-25-2016 [facility] H[facility]ORY OTH SERV DISEASES FOUNDATION CIRCULATORY SYSTEM D229 MELANOCYTIC 02-07-2016 A Gabriel MCQUEEN MD PSC UNSPECIFIED I10 ESSENTIAL 12-31-2015 [facility] HYPERTENSIO HOLDINGS N R569 UNSPECIFIED 12-31-2015 [facility] CONVULSIONS HOLDINGS C63385 EFFUSION 11-26-2015 [facility] LEFT [facility] INC R609 EDEMA 11-26-2015 [facility] UNSPECIFIED PHYSICIANS, PLLC U22799 PERSONAL 11-26-2015 [facility] HISTORY OF [facility] NICOTINE INC DEPENDENCE P58049 EPILEPSY 11-04-2015 [facility] UNS NOT PHYSICIANS INTRACT W/O GROUP STATUS EPILEPTICUS R9401 ABNORMAL 09-18-2015 [facility] PHALOGRAM EEG Z1211 ENCOUNTER 09-05-2015 [facility] SCREENING PHYSICIANS MALIGNANT GROUP NEOPLASM OF COLON R51 HEADACHE 08-22-2015 [facility] G463 BRAIN STEM 08-13-2015 [facility] SYNDROME A389NZJ UNS ADVERS 08-13-2015 [facility] DRUG/MEDICA MENT INITIAL ENCNTR J069 ACUTE UPPER 08-09-2015 [facility] RESPIRATORY GROUP INFECTION UNSPECIFIED R05 COUGH 06-27-2015 [facility] 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 P N OF CEREBRAL VESSELS R4781 SLURRED 04-03-2015 [facility] SPEECH [facility] R531 WEAKNESS 04-03-2015 [facility] Y56048 OTHER 04-02-2015 [facility] SERV CATARACT FOUND[facility] RIGHT EYE 4571 OTHER 12-22-2014 [facility] NONINFECTIO [facility] US INC LYMPHEDEMA V571 OTHER 12-22-2014 [facility] PHYSICAL [facility] THERAPY INC 7906 OTHER 11-15-2014 [facility] ABNORMAL [facility] BLOOD INC CHEMISTRY 40037 UNSPEC 2013 [facility] EPILEPSY WITHOUT MENTION INTRACT EPILEPSY 7823 EDEMA 2013 [facility] 64899 OBESITY, 10-19-2013 [place] UNSPECIFIED [facility] HOSPITAL 86243 NUCLEAR 10-19-2013 [place] [facility] SCLEROSIS SERV FOUNDATIO 3669 UNSPECIFIED 10-19-2013 [place] [address] OSTEOARTHRO 10-19-2013 [facility] HOSPITAL GEN/LOC UNSPEC SITE V140 PERSONAL 10-19-2013 [place] HISTORY OF COMMUNITY ALLERGY TO HOSPITAL PENICILLIN V5869 LONG-TERM 10-19-2013 [place] (CURRENT) [facility] USE OF HOSPITAL OTHER MEDICATIONS V8539 BODY MASS 10-19-2013 [place] INDEX COMMUNITY 39.0-39.9 HOSPITAL ADULT 48695 TOTAL OR 09-14-2013 [place] [facility] MATURE [facility] SENILE FOUNDATIO CATARACT 18078 OTHER 09-14-2013 [place] CONVULSIONS [facility] 66835 OTHER 08-01-2013 [facility] DEVRI[facility] MALAISE AND FATIGUE 682.3 682.3 02-09-2013 [place] CELLULITIS [facility] 780.39 780.39 02-09-2013 [facility] Allergies, Adverse Reactions, Alerts Type Drug [...] PI 00 09 10 60 30 00 PR Ac RO 37 -0 -0 .0 00 [...] #5 F 91 12 H TA B SC 00 08 09 12 30 00 PR Ac IM 59 -1 -0 0. 00 [...] 1 40 PH CE AR TA MA SD CY NO PH #5 EN 91 5- [...] LE 31 07 08 60 30 00 PR Ac VE 72 -1 -1 .0 00 L- ti TI 20 4- 1- 00 07 MA ve RA 53 20 20 48 RT CE 81 17 17 35 TA 2 53 PH M AR 75 MA 0 CY MG #5 TA 91 BL ET AL 00 07 08 60 30 00 PR Ac LE 11 -1 -1 .0 00 L- ti RG 32 8- 1- 00 08 MA ve Y- 01 20 20 84 RT CO 36 17 17 03 NG 0 18 PH ES AR TI MA ON CY RL #5 F 91 12 H TA B FU 69 07 08 90 90 00 PR Ac RO 31 -1 -1 .0 00 L- ti SE 50 8- 1- 00 07 MA ve SD 11 20 20 49 RT DE 71 17 17 93 0 76 PH 40 AR MA MG CY TA #5 BL 91 ET SC 00 07 08 12 30 00 PR Ac IM 59 -0 -0 0. 00 [...] #5 F 91 12 H TA B SC 00 06 06 12 30 00 WA [...] LI 68 06 06 90 90 00 PR Ac SI 18 -0 -3 .0 00 L- ti NO 00 5- 0- 00 07 MA ve SC 51 20 20 49 RT IL 40 17 17 18 1 00 PH 10 AR MA MG CY TA #5 BL 91 ET LE 31 05 06 60 30 00 PR Ac VE 72 -1 -1 .0 00 L- ti TI 20 8- 6- 00 07 MA ve RA 53 20 20 48 RT CE 81 17 17 35 TA 2 53 PH M AR 75 MA 0 CY MG #5 TA 91 BL ET AL 00 05 06 60 30 00 PR Ac LE 11 -1 -0 .0 00 L- ti RG 32 7- 9- 00 08 MA ve Y- 01 20 20 83 RT CO 36 17 17 90 NG 0 71 PH ES AR TI MA ON CY RL #5 F 91 12 H TA B SC 00 05 06 12 30 00 [place] Ac IM 59 -0 -0 0. 00 L- ti ID 15 9- 2- 00 07 MA ve ON 32 20 20 0 46 RT E 10 17 17 58 25 1 45 PH 0 AR MG MA CY TA BL #5 ET 91 PI 00 05 06 54 27 00 PR Ac RO 37 -0 -0 .0 00 [...] LE 31 04 05 60 30 00 PR Ac VE 72 -2 -1 .0 00 [...] #5 F 91 12 H TA B SC 00 04 05 12 30 00 PR Ac IM 59 -0 -0 0. 00 L- ti ID 15 8- 5- 00 07 MA ve ON 32 20 20 0 46 RT E 10 17 17 58 25 1 45 PH 0 AR MG MA CY TA BL #5 ET 91 PI 00 04 04 54 27 00 PR Ac RO 37 -0 -2 .0 00 L- ti XI 80 2- 8- 00 07 MA ve CA 46 20 20 47 RT M 60 17 17 38 10 1 54 PH AR MG MA CY CA PS #5 UL 91 E PH 51 03 04 60 30 00 PR Ac EN 29 -2 -2 .0 00 L- ti OB 30 5- 1- 00 04 MA ve AR 62 20 20 52 RT BI 60 17 17 90 TA 1 97 PH L AR 32 MA .4 CY MG #5 91 TA BL ET LI 54 03 04 90 90 00 PR Ac SI 45 -1 -1 .0 00 L- ti NO 80 6- 4- 00 07 MA ve SC 99 20 20 45 RT IL 71 17 17 73 0 79 PH 10 AR MA MG CY TA #5 BL 91 ET AL 00 03 04 60 30 00 PR Ac LE 11 -1 -1 .0 00 [...] 11 0- 7- 00 07 MA ve SD 96 20 20 42 RT DE 61 [...] CY CA PS #5 UL 91 E SC 00 03 03 12 30 00 [place] Ac IM 59 -0 -3 0. 00 L- ti ID 15 7- 1- 00 07 MA ve ON 32 20 20 0 46 RT E 10 17 17 58 25 1 45 PH 0 AR MG MA CY TA BL #5 ET 91 AL 00 02 03 60 30 00 PR Ac LE 11 -1 -1 .0 00 L- ti RG 32 4- 0- 00 08 MA ve Y- 01 20 20 83 RT CO 36 17 17 74 NG 0 84 PH ES AR TI MA ON CY RL #5 F 91 12 H TA B PH 51 02 03 60 30 00 PR Ac EN 29 -1 -1 .0 00 L- ti OB 30 2- 0- 00 04 MA ve AR 62 20 20 52 RT BI 60 17 17 90 TA 1 97 PH L AR 32 MA .4 CY MG #5 91 TA BL ET SC 00 02 03 90 30 00 PR Ac ED 14 -0 -1 .0 00 L- ti NI 39 9- 0- 00 07 MA ve SO 74 20 20 46 RT NE 01 17 17 96 5 0 82 PH AR MG MA CY TA BL #5 ET 91 PH 65 02 03 12 30 00 PR Ac EN 16 -0 -0 0. 00 L- ti YT 20 6- 3- 00 07 MA ve OI 21 20 20 0 46 RT N 25 17 17 58 SO 0 79 PH D AR EX MA T CY 10 0 #5 MG 91 CA P SC 00 02 03 12 30 00 [place] Ac IM 59 -0 -0 0. 00 L- ti ID 15 6- 3- 00 07 MA ve ON 32 20 20 0 46 RT E 10 17 17 58 25 1 45 PH 0 AR MG MA CY TA BL #5 ET 91 PH 65 01 02 12 30 00 PR Ac EN 16 -1 -1 0. 00 [...] CY MG #5 91 TA BL ET SC 00 01 02 90 30 00 [place] Ac ED 14 -1 -1 .0 00 L- ti NI 39 2- 0- 00 07 MA ve SO 74 20 20 45 RT NE 01 17 17 70 5 0 00 PH AR MG MA CY TA BL #5 ET 91 SC 00 12 01 12 30 00 [place] Ac IM 59 -2 -2 0. 00 L- ti ID 15 9- 7- 00 07 MA ve ON 32 20 20 0 45 RT E 10 16 17 49 25 1 57 PH 0 AR MG MA CY TA BL #5 ET 91 AL 00 12 01 60 30 00 PR Ac LE 11 -2 -2 .0 00 L- ti RG 32 9- 7- 00 08 MA ve Y- 01 20 20 83 RT CO 36 16 17 74 NG 0 84 PH ES AR TI MA ON CY RL #5 F 91 12 H TA B PH 65 12 01 12 30 00 PR Ac EN 16 -1 -1 0. 00 L- ti YT 20 5- 3- 00 07 MA ve OI 21 20 20 0 45 RT N 25 16 17 86 SO 0 80 PH D AR EX MA T CY 10 0 #5 MG 91 CA P PH 51 12 01 60 30 00 PR Ac EN 29 -1 -1 .0 00 L- ti OB 30 8- 3- 00 04 MA ve AR 62 20 20 52 RT BI 60 16 17 85 TA 1 10 PH L AR 32 MA .4 CY MG #5 91 TA BL ET LI 54 12 01 90 90 00 PR Ac SI 45 -0 -0 .0 00 L- ti NO 80 8- 9- 00 07 MA ve SC 99 20 20 45 RT IL 71 [...] Procedures Procedure DOS Code Location Performer Comment [facility] [address] TRES TRES MEDICAL 7 JR JR XM&EVAL INTERMEDI ATE ESTAB PT CT THORAX [address] [place] W/O 7 MEDICAL CONTRAST SERV MATERIAL FOUNDATIO N COLLECTIO 99923 [facility] N VENOUS 6 [facility] B[facility] U[facility] CALCIUM 58219 [facility] IONIZED 6 [facility] [place] [address] [facility] MAGNESIUM 6 [facility] [place] [address] [facility] PARATHORM 6 [facility] [place] [address] [place] [facility] PHOSPHORU 6 [facility] S [place] [facility] [address] [place] [facility] SOMATOMED 6 [facility] [place] [address] [place] [facility] THYROID 6 [facility] STIMULATI E E NG [facility] TSH RADEX 27925 [place] SPINE 6 MEDICAL HENRRY LUMBOSACR SERV AL 2/3 FOUNDATIO VIEWS N RADEX 58265 [place] WRIST 2 6 MEDICAL HENRRY VIEWS SERV FOUNDATIO N RADEX 46096 [facility] ANKLE 6 Y Y COMPLETE [facility] MINIMUM 3 VIEWS RADEX 79890 [facility] FOOT 6 Y Y [facility] MINIMUM 3 VIEWS URNLS DIP 43861 [facility] 6 Y Y STICK/TAB [facility] LET REAGENT AUTO MICROSCOP Y RADEX 09095 [facility] HAND 2 6 Y Y VIEWS [facility] RADEX 45296 [place] [facility] HIPS 6 MEDICAL HENRRY BILATERAL SERV WITH FOUNDATIO PELVIS 2 N VIEWS PROTEIN 22363 [facility] ELECTROPH 6 Y Y ORETIC [facility] FRACTJ&QU ANTJ SERUM PROTEIN 17198 [facility] ELECTROP 6 Y Y FXJ&SHAILA [facility] [place] [address] [facility] ALDOLASE 6 Y Y [facility] CREATINE 73421 [facility] KINASE 6 Y Y TOTAL [facility] PROTEIN 39128 [facility] TOTAL 6 Y Y XCPT [facility] REFRACTOM ETRY URINE RADIOLOGI 30446 [facility]/2 VIEWS COLLECTIO 11151 [facility] N VENOUS 6 Y Y BLOOD [facility] VENIPUNCT URE C-REACTIV 29820 [facility] E PROTEIN 6 Y Y [facility] RADIOLOGI 06435 [facility] C EXAM 6 Y Y SACROILIA [facility] C JOINTS 3/MORE VIEWS RADEX 31896 [facility] SHOULDER 6 Y Y [facility] HOSPITAL MINIMUM 2 VIEWS BLOOD 51319 [facility] COUNT 6 Y Y [facility] HOSPITAL AUTO&AUTO DIFRNTL WBC RADIOLOGI 12956 [facility] LOBO C EXAM 6 MEDICAL NIRAV CHEST 2 SERV VIEWS FOUNDATIO FRONTAL&L N ATERAL SEDIMENTA 40818 [facility] TION RATE 6 Y Y RBC [facility]OS[facility] HOSPITAL AUTOMATED ANTINUCLE 53615 [facility] AR 6 Y Y ANTIBODIE [facility] S LULA FLUORESCE 69295 [facility] NT 6 Y Y NONNFCT [facility] AGT ANTB SCREEN EA ANTIBODY C-REACTIV 83511 [facility] E PROTEIN 6 Y Y HOSPITAL HOSPITAL SYPHILIS 36114 [facility] TEST 6 Y Y NON-TREGARNET HEALTH NEMAL ANTIBODY QUAL COLLECTIO 39703 [facility] N VENOUS 6 Y Y BLOOD [facility] VENIPUNCT URE RHEUMATOI 13522 [facility] D FACTOR 6 Y Y QUANTITAT [facility] [place] HEPATITIS 53718 [facility] C 6 Y Y ANTIBODY HOSPITAL HOSPITAL SEDIMENTA 20300 [facility] TION RATE 6 Y Y RBC [facility] AUTOMATED COMPLEMEN 59422 [facility] T ANTIGEN 6 Y Y EACH HOSPITAL HOSPITAL COMPONENT CYCLIC 17479 [facility] CITRULLIN 6 Y Y ATED HOSPITAL [facility] PEPTIDE ANTIBODY EXTRACTAB 73741 [facility] LE 6 Y Y NUCLEAR HOSPITAL [facility] ANTIGEN ANTIBODY ANY METHOD HEPATITIS 70337 [facility] B CORE 6 Y Y ANTIBODY [facility] [address] [facility] HEPATITIS 6 Y Y B HOSPITAL HOSPITAL SURFACE ANTIGEN BLOOD 55102 [facility] COUNT 6 Y Y COMPLETE HOSPITAL [facility] AUTO&AUTO DIFRNTL WBC COMPREHEN 51991 [facility] SIVE 6 Y Y [facility]ABOLIC [facility]OSPITAL HOSPITAL PANEL URNLS DIP 78678 [facility] 6 Y Y STICK/TAB [facility] LET RGNT AUTO W/O MICROSCOP Y DUP-SCAN 21709 [facility]ERS ALL XTR VEINS 6 MEDICAL IMAGING [place] [address] [facility] BLOOD/URI 6 [facility] C ACID HOLDINGS HOLDINGS COMPREHEN 14021 [facility] SIVE 6 [facility] METABOLIC HOLDINGS HOLDINGS PANEL BLOOD 34487 [facility] COUNT 6 [facility] COMPLETE HOLDINGS HOLDINGS AUTO&AUTO DIFRNTL WBC SEDIMENTA 89370 [facility] TION RATE 6 [facility] RBC HOLDINGS HOLDINGS AUTOMATED C-REACTIV 70970 [facility] E PROTEIN 6 [facility] HOLDINGS HOLDINGS RHEUMATOI 25285 [facility] D FACTOR 6 [facility] QUANTITAT [facility] HOLDINGS [place] ANTINUCLE 68835 [facility] AR 6 [facility] ANTIBODIE HOLDINGS HOLDINGS S LULA LIPID 78171 A Gabriel FUENTES PANEL 6 ARUNA TODD JEPetey PSC RADEX 91565 [facility]U MYERS ALL ELBOW 2 6 MEDICAL VIEWS IMAGING ASS HEMOGLOBI 53993 A C GINA N 6 ARUNA FRAUSTO GLYCOSYLA PSC ISABELA A1C RADEX 86234 [facility] NUR ELBOW 6 [facility] COMPLETE INC INC MINIMUM 3 VIEWS THERAPEUT 31022 [facility] NUR IC 6 [facility] PROPHYLAC INC INC TIC/DX INJECTION SUBQ/IM UNCLASSIF J3490 [facility] NUR IED DRUGS 6 [facility] INC INC COLLECTIO 27171 [facility] NUR N VENOUS 6 [facility] BLOOD INC INC VENIPUNCT URE DRUG 88605 [facility] NUR SCREEN 6 MEM HOS[facility] HOSP QUANTITAT INC INC [place] PHENYTOIN TOTAL ELECTROEN 68891 [facility] 6 Y Y AM W/REC HOSPITAL HOSPITAL AWAKE&ASL EEP COLONOSCO 22044 [facility] MATILDE PY FLX DX 6 PHYSICIAN CAM W/LANI S GROUP SPEC WHEN PFRMD ANES 22447 [facility] FEEBACK LOWER 6 ANESTH REE INTESTINE OF THE BLUE ENDOSCOPY DISTAL DUODENUM UNCLASSIF J3490 [facility] NUR IED DRUGS 6 [facility] HOS[facility] INC INC MRI BRAIN 19952 SARTHAK CABRERA BRAIN 6 MEDICAL STEM W/O SERV W/CONTRAS FOUNDATIO T N MATERIAL DXA BONE 51457 [facility] DENSITY 6 Y Y STUDY 1/> HOSPITAL HOSPITAL SITES AXIAL SKEL INJECTION A9585 [facility] 6 Y Y GADOBUTRO [facility] L 0.1 ML COMPREHEN 11995 [facility] 6 Y Y [facility] PANEL DRUG 76284 [facility] SCREEN 6 Y Y [facility] [place] PHENOBARB ITAL CYANOCOBA 89757 [facility] 6 Y Y [facility] B-12 BLOOD 81691 [facility] COUNT 6 Y Y [facility] AUTOMATED DRUG 36285 [facility] SCREEN 6 Y Y [facility] [place] PHENYTOIN TOTAL COLLECTIO 30926 [facility] N VENOUS 6 Y Y [facility] VENIPUNCT URE COMPREHEN 82570 [facility] N[facility] SIVE [address] [facility] METABOLIC INC INC PANEL RADIOLOGI 45763 [place] [facility] C EXAM 6 MEDICAL CHEST 2 IMAGING VIEWS ASS FRONTAL&L ATERAL BLOOD 67692 [facility] NUR COUNT 6 [facility]OS[facility] COMPLETE INC INC AUTO&AUTO DIFRNTL WBC DRUG 45026 [facility]UR SCREEN [address] [facility] QUANTITAT INC INC [place] PHENYTOIN TOTAL COLLECTIO 68650 [facility] NUR N VENOUS [address] [facility] BLOOD INC INC VENIPUNCT URE HEMOGLOBI 35143 [facility] NUR N [address] [facility] GLYCOSYLA INC INC ISABELA A1C NATRIURET 34568 [facility] NUR IC [address] [facility] [place] [address] BOOM NUR TROPONIN 5 [facility] [place] [address] [facility] 5 Y Y HY [facility] W/CONTRAS T/NONCONT RAST CREATINE 69214 BOOM NUR KINASE MB 5 [facility] FRACTION INC INC ONLY CREATINE 33136 BO[facility] NUR KINASE 5 [facility] TOTAL INC INC ECG 29134 BO[facility] NUR ROUTINE [address] [facility] ECG INC INC W/LEAST 12 LDS TRCG ONLY W/[place] [address] BOOM NUR HEAD/BRAI 5 [facility] N W/O INC INC CONTRAST MATERIAL GROUND A0425 [facility] AMBULANCE PER SERVICE SERVICE STATUTE MILE BLOOD 58908 BO[facility] NUR COUNT 5 [facility]OS[facility] COMPLETE INC INC AUTO&[place] [address] [facility] 5 Y Y HY [facility] W/CONTRAS T/NONCONT RAST ECG 93589 BO[facility] DIMAS ROUTINE 5 [place] W/LEAST P 12 LDS I&R ONLY RADIOLOGI 20521 BOOM NUR C EXAM [address] [facility] CHEST 2 INC INC VIEWS FRONTAL&L ATERAL COMPREHEN 59217 BOOM NUR SIVE 5 [facility] METABOLIC INC INC PANEL LOCM Q9967 [facility] [phone] 5 Y Y MG/ML HOSPITAL HOSPITAL IODINE CONCENTRA TION PER ML THROMBOPL 10955 BOOM NUR ASTIN 5 [facility] TIME INC INC PARTIAL PLASMA/WH OLE BLOOD POST-WALESKA 60838 SARTHAK JOSHUA RACT 5 MEDICAL JR LASER SERV SURGERY FOUNDATIO N THERAPEUT 90738 BOOM NUR IC PX 1/> 5 [facility] AREAS INC INC EACH 15 MIN EXERCISES MANUAL 31630 BOOM NUR THERAPY 5 [facility] TQS 1/> INC INC REGIONS EACH 15 MINUTES MANUAL 72702 BOOM NUR THERAPY 5 [facility] TQS 1/> INC INC REGIONS EACH 15 MINUTES THERAPEUT 20550 BOOM BOOM IC PX 1/> 5 [facility]OS[facility] AREAS INC INC EACH 15 MIN EXERCISES THERAPEUT 41834 BOOM STREETON IC PX 1/> 5 MEM [facility]OS[facility] AREAS INC INC EACH 15 MIN EXERCISES MANUAL 57267 BOOM NUR THERAPY 5 MEM [facility]OSP TQS 1/> INC INC REGIONS EACH 15 MINUTES MANUAL 17708 BOOM BOOM THERAPY 5 MEM HOS[facility] MEM [facility]OSP TQS 1/> INC INC REGIONS EACH 15 MINUTES THERAPEUT 67183 BOOM NUR IC PX 1/> 5 MEM [facility]OS[facility] AREAS INC INC EACH 15 MIN EXERCISES THERAPEUT [address]694 BOOM [address]RE[address]ON IC PX 1/> 5 [facility] AREAS INC INC EACH 15 MIN EXERCISES MANUAL [address]ON THERAPY 5 [facility] TQS 1/> INC INC REGIONS EACH 15 MINUTES MANUAL 76335 BOOM BOOM THERAPY 5 MEM [facility]OS[facility] MEM [facility]OS[facility] TQS 1/> INC INC REGIONS EACH 15 MINUTES [address]UT [address] IC PX 1/> 5 [facility] EACH 15 MIN EXERCISES THERAPEUT [address] IC PX 1/> 5 [facility] EACH 15 MIN EXERCISES MANUAL [address] THERAPY 5 [facility] TQS 1/> INC INC REGIONS EACH 15 MINUTES [address]UAL [address] THERAPY 5 [facility] TQS 1/> INC INC REGIONS EACH 15 MINUTES ORTHOTIC 11931 BOOM NUR MGMT&GEOVANNI 5 [facility] [place] [facility] INC LXTR&/TRN K EA 15 MANUAL 63856 BOOM NUR THERAPY 5 [facility] TQS 1/> INC INC REGIONS EACH 15 MINUTES MANUAL 77594 BOOM NUR THERAPY 5 [facility] TQS 1/> INC INC REGIONS EACH 15 MINUTES MANUAL [address] THERAPY 5 [facility] TQS 1/> INC INC REGIONS EACH 15 MINUTES MANUAL 32001 BOOM BOOM THERAPY 5 [facility] TQS 1/> INC INC REGIONS EACH 15 MINUTES PHYSICAL 74260 BOOM NUR THERAPY 5 [facility] [place] [address] BO[address] [facility] THYROXINE [address] [facility] [place] [address] BOOM [address] THYROID [address] [facility] STIMULATI INC INC NG HORMONE TSH BLOOD 73073 BOOM NUR COUNT 5 [facility] COMPLETE INC INC AUTO&AUTO DIFRNTL WBC HEMOGLOBI 37222 BOOM NUR N 5 [facility] GLYCOSYLA INC INC ISABELA A1C LIPID 48652 BOOM NUR PANEL 5 [facility] INC INC COMPREHEN 74332 BOOM NUR SIVE 5 [facility] METABOLIC INC INC PANEL COLLECTIO 89382 BOOM NUR N VENOUS 5 [facility] BLOOD INC INC VENIPUNCT URE CATARACT 71102 SARTHAK TRES REMOVAL 4 MEDICAL JR [facility] INSERTION SERV OF LENS FOUNDATIO RINGERS J7120 [facility] [address] [place] [address] UP TO 1000 CC INJECTION J3010 [facility] FENTANYL [address] [place] [address] 0.1 MG INJECTION J2001 [address] HCL INTRAVENO US INFUS 10 MG ANESTHESI [address] [place] [facility] A EYE 4 ANESTHESI LENS A GROUP SURGERY PS ANESTHESI 80464 [place] SUREKHA A EYE 4 ANESTHESI KAYCE LENS A GROUP SURGERY PS RINGERS J7120 [facility] [address] [place] [address] UP TO 1000 CC INJECTION J[address] HCL INTRAVENO US INFUS 10 MG INJECTION J3010 [facility] [address] [place] [address] 0.1 MG INJECTION J2405 [address] ON HCL PER 1 MG CATARACT 30367 SARTHAK TRES REMOVAL 4 MEDICAL JR [facility] INSERTION SERV OF LENS FOUNDATIO INJECTION J2250 [facility] HCL PER 1 MG Encounters Encounter Start End Date Code Location Performer Type Date OFFICE 67050 SARTHAK DOMINGO OUTPATIEN 7 7 MEDICAL III T VISIT SERV 25 FOUNDATIO MINUTES N OFFICE [id number] OUTPATIEN 7 7 [facility]CAR T VISIT 5 E MINUTES [facility] OFFICE 45767 SARTHAK QUEEN OUTPATIEN 7 7 MEDICAL T VISIT SERV 15 FOUNDATIO MINUTES N [facility] OUT[facility] E T [facility]PITALS OFFICE 57468 Petey Rios [place] OUTPATIEN 7 7 VALDOVINOS MD T VISIT PSC 15 MINUTES OFFICE 17401 OUTPATIEN 7 7 [facility]ALTHCAR T VISIT 5 E MINUTES [facility] OFFICE 55640 SARTHAK QUEEN OUTPATIEN 7 7 MEDICAL T VISIT SERV 25 FOUNDATIO MINUTES [facility] OUT[facility] E T [facility] OFFICE 52113 SARTHAK PICKARD OUTPATIEN 7 7 MEDICAL T VISIT SERV 25 FOUNDATIO MINUTES [facility] OUTPATI[facility] E T [facility]PITALS OFFICE 39646 SARTHAK QUEEN OUTPATIEN 7 7 MEDICAL T VISIT SERV 25 FOUNDATIO MINUTES N OFFICE 67223 OUTPATIEN 7 7 HEALTHCAR T VISIT 5 E MINUTES [facility] - 7 7 [facility] OUTPATIEN E T HOSPITALS OFFICE 75263 SARTHAK MEEKSAIMEERI OUTPATIEN 6 6 MEDICAL MAR T VISIT SERV 25 FOUNDATIO MINUTES [facility] - 6 6 [facility] OUT[facility]IEN E [facility] 6 6 [facility] OUTPATIEN [facility]PITAL T OFFICE 17665 SARTHAK NEERAJ OUTPATIEN 6 6 MEDICAL MAR T VISIT SERV 25 FOUNDATIO MINUTES [facility]OSPITAL [facility] - 6 6 [facility] T OFFICE 85502 [place] KHAWAR[place] CONSULTAT 6 6 MEDICAL MAR ION SERV NEW/ESTAB FOUNDATIO PATIENT N 40 MIN OFFICE 02058 A C [facility] OUTPATIEN 6 6 ARUNA FRAUSTO T VISIT PSC 15 MINUTES [facility] - 6 6 [facility]IEN INC T OFFICE 79331 A C [place] OUTPATIEN 6 6 ARUNA FRAUSTO T NEW 30 PSC MINUTES [facility]OSPITAL [facility] - 6 6 [facility] OUTPATIEN INC T EMERGENCY 42881 ANJANA CORLEY 6 6 PHYSICIAN U IVY [facility], [facility] T VISIT MODERATE [facility]VERITY EMERGENCY [address] [facility] T VISIT LOW/MODER SEVERITY [facility]OSPITAL [facility] - [address] [facility] 95994 [facility] NIRAV T [facility]ISIT S GROUP 15 MINUTES [facility] [address] [facility] T OFFICE 78456 [facility] 6 6 PHYSICIAN NIRAV T VISIT S GROUP 15 MINUTES [facility] [address] [facility] T OFF[facility] 47641 [facility] OUTPATIEN 6 6 PHYSICIAN CAM T NEW 30 S GROUP MINUTES [facility] 6 6 [facility] OFF[facility] 25877 [place] [facility] OUTPATIEN 6 6 MEDICAL OSMAR T NEW 45 SERV MINUTES [facility]OUNDATIO N OFFICE 05029 [facility] Y T VISIT 5 [facility] - [facility] 02819 [facility] 6 6 PHYSICIAN NIRAV T VISIT S GROUP 15 MINUTES HOSPITAL [facility]OM - 6 6 [facility] 54223 [facility] 6 6 PHYSICIAN NIRAV T VISIT S GROUP 25 MINUTES EMERGENCY 61775 BOOM 5 5 [facility] T VISIT HIGH/URGE NT SEVERITY [facility] UN[facility]ERSIT - [address] [facility] [facility] EMERGENCY 72078 ANJANA BRYANT DEPT 5 5 PHYSICIAN FOR VISIT S, [facility] HIGH SEVERITY& THREAT [facility] BOOM - 5 5 [facility] 5 5 [facility] - [address] [facility] 28187 LIAN UNDERWOOD 4 4 KAYCE KAYCE T VISIT 15 MINUTES [facility] - 4 4 [facility] 57199 LIAN UNDERWOOD 4 4 KAYCE KACYE T VISIT 15 MINUTES Emergency GABBY Nicolas MD (ER) 3 20:25 3 22:48 [facility]
--- OUTSIDE RECORDS SUMMARY | 2017-03-06 05:21 | External Medical Summary Rpt | CCD ---
Author Author , PRADEEP Joseph PRADEEP Address Unknown Phone [email or web address] Care Team Providers Care Silverware Washer Name Role Phone A Gabriel VALDOVINOS MD PSC, Petey Unavailable Unavailable Gabriel VALDOVINOS MD PSC ARNOLD KAYCE, ARNOLD Unavailable Unavailable KAYCE ARNOLD KAYCE, ARNOLD Unavailable Unavailable KAYCE [facility], Unavailable Unavailable [facility] BESSON MERVAT, BESSON Unavailable Unavailable MERVAT MYERS ALL, MYERS ALL Unavailable Unavailable [facility] Unavailable Unavailable HOSPITAL, [facility] Unavailable Unavailable SERVICE, [facility] TRES JR, TRES Unavailable Unavailable JR TRES JR, TRES Unavailable Unavailable JR FEEBACK REE, FEEBACK Unavailable Unavailable REE LEAH NIRAV, LEAH Unavailable Unavailable [facility] Unavailable Unavailable HOSPITAL P, [facility] P BRET, BRET Unavailable Unavailable BRET OSMAR, BRET Unavailable Unavailable OSMAR [facility], Unavailable Unavailable [facility] JOSE L III, JOSE L Unavailable Unavailable III [facility] Un[facility] Unavailable GROUP PS, [facility] Un[facility], [facility] KHAWARI, KHAWARI Unavailable Unavailable KHAWARI MAR, KHAWARI Unavailable Unavailable MAR KILPELA, KILPELA Unavailable Unavailable KILPELA JEA, KILPELA Unavailable Unavailable [facility] Un[facility] Unavailable [facility], [facility] Unavailable Unavailable [facility], [facility] LUKINS VALERIE, LUKINS Unavailable Unavailable VALERIE [facility], Unavailable Unavailable PLL[facility], [facility] SCHULSTAD CAM, Unavailable Unavailable [facility] ABDON JENNA, ABDON JENNA Unavailable Unavailable SOTINGEANU IVY, Unavailable Unavailable SOTINGEANU IVY VINAY HENRRY, VINAY Unavailable Unavailable HENRRY SUREKHA KAYCE, SUREKHA Unavailable Unavailable KAYCE [facility] Unavailable Unavailable HOSPITALS, [facility], Unavailable Unavailable [facility] Unavailable Unavailable FOR Purpose Continuity of Care Document - 08-01-2013 through 2016 Problems Code Diagnosis DOS Provider Status [id number] PAIN IN 12-28-2016 [place] [facility] M4810 ANKYLOSING 12-28-2016 [facility] HYPEROSTOSI [facility] S SITE [facility] UNSPECIFIED Z791 INTERMEDIATE 12-28-2016 [place] [facility] CUR[facility] NON-STEROID [facility] AL&ANTI-INF LAMMATORIES K67634 LOC-REL SX 12-24-2016 [facility] W/SPS HOSPITALS INTRACT W/O STAT EPI Q858 OTHER 12-24-2016 [facility] S NOT HOSPITALS ELSEWHERE CLASSIFIED H4089 OTHER 10-21-2016 A Gabriel FERRER MD PSC [place] H409 UNSPECIFIED 10-21-2016 A Gabriel VALDOVINOS [place] PSC [id number] OTHER 10-01-2016 [facility] VITREOUS OPACITIES BILATERAL Z961 PRESENCE OF 10-01-2016 [facility] INTRAOCULAR LENS R208 OTHER 09-10-2016 [facility] OF SKIN HOSPITALS SENSATION M779 ENTHESOPATH 07-02-2016 [facility] Y [facility] UNSPECIFIED FOUNDATION J9811 ATELECTASIS 06-03-2016 [facility] R918 OTHER 06-03-2016 [facility] ABNORMAL HOSPITALS FINDING OF LUNG FIELD M7989 OTHER 04-29-2016 [facility] SOFT TISSUE [facility] DISORDERS M88511 OTHER LONG 04-29-2016 [facility] CURRENT HOSPITALS DRUG THERAPY M160 BILATERAL 03-31-2016 [facility] OSTEOARTHRI FOUNDATION TIS OF HIP M170 BILATERAL 03-31-2016 [facility] OSTEOARTHRI [facility] TIS OF KNEE M1990 UNSPECIFIED 03-31-2016 [facility] OSTEOARTHRI [facility] TIS UNSPECIFIED SITE O04429 EFFUSION 03-31-2016 [facility] HAND R768 OTH SPEC 03-31-2016 [facility] IMMUNOLOGIC AL FIND IN SERUM R809 PROTEINURIA 03-31-2016 [facility] UNSPEC[facility]IED [facility] Z0000 ENCOUNTER 03-31-2016 [facility] EXAM W/O ABNORMAL FIND 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 [facility] NON-NEOPLAS SERV TIC NEVUS FOUND[facility] R0602 SHORTNESS 02-25-2016 [facility] OF BREATH SERV [facility] R0789 OTHER CHEST 02-25-2016 [facility] PA[facility] Z8679 PERSONAL 02-25-2016 [facility] OTH SERV DISEASES FOUNDATION CIRCULATORY SYSTEM D229 MELANOCYTIC 02-07-2016 Petey Gabriel MCQUEEN MD PSC UNSPECIFIED I10 ESSENTIAL 12-31-2015 [facility] HYPERTENSIO HOLDINGS N R569 UNSPECIFIED 12-31-2015 [facility] CONVULSIONS HOLDINGS I02701 EFFUSION 11-26-2015 [facility] LEFT HAND [facility] INC R609 EDEMA 11-26-2015 [facility] UNSPECIFIED [facility]YSICIANS, PLLC K82727 PERSONAL 11-26-2015 [facility] HISTORY OF [facility] NICOTINE INC DEPENDENCE E60882 EPILEPSY 11-04-2015 [facility] UNS NOT PHYSICIANS INTRACT W/O GROUP STATUS EPILEPTICUS R9401 ABNORMAL 09-18-2015 [facility] PHALOGRAM EEG Z1211 ENCOUNTER 09-05-2015 [facility] SCREENING PHYSICIANS MALIGNANT GROUP NEOPLASM OF COLON R51 HEADACHE 08-22-2015 [facility] [employer] G463 BRAIN STEM 08-13-2015 [facility] SYNDROME P807LOZ UNS ADVERS 08-13-2015 [facility] DRUG/MEDICA MENT INITIAL ENCNTR J069 ACUTE UPPER 08-09-2015 [facility] PHYSICIANS RESPIRATORY GROUP INFECTION UNSPECIFIED R05 COUGH 06-27-2015 [facility] 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 [facility] SLEEP PHYSICIANS APNEA ADULT GROUP PEDIATRIC L989 DISORDER 06-26-2015 [facility] THE SKIN & PHYSICIANS SUBCUTANEOU GROUP S TISSUE UNS G441 VASCULAR 04-03-2015 [facility] HEADACHE PHYSICIANS, NOT PLLC ELSEWHERE CLASSIFIED M3130 WEGENERS 04-03-2015 [facility] GRANULOMATO SERV SIS W/O FOUNDATION RENAL INVOLVEMENT Q282 ARTERIOVENO 04-03-2015 [facility] P N OF CEREBRAL VESSELS R4781 SLURRED 04-03-2015 [facility] SPEECH SERV FOUNDATION R531 WEAKNESS 04-03-2015 [facility] V49158 OTHER 04-02-2015 [facility] CATARACT [facility] RIGHT EYE 4571 OTHER 12-22-2014 [facility] NONINFECTIO [facility] US INC LYMPHEDEMA V571 OTHER 12-22-2014 [facility] PHYSICAL [facility] THERAPY INC 7906 OTHER 11-15-2014 [facility] ABNORMAL [facility] BLOOD INC CHEMISTRY 04850 UNSPEC 2013 LIAN KAYCE EPILEPSY WITHOUT MENTION INTRACT EPILEPSY 7823 EDEMA 2013 LI[facility] DEVRIES 40663 OBESITY, 10-19-2013 [place] UNSPECIFIED [facility] 32423 NUCLEAR 10-19-2013 [place] [facility] SCLEROSIS SERV FOUNDAT[facility] 3669 UNSPECIFIED 10-19-2013 [place] [address] OSTEOARTHRO 10-19-2013 [place] S UNSPEC COMMUNITY WHETHER HOSPITAL GEN/LOC UNSPEC SITE V140 PERSONAL 10-19-2013 [place] HISTORY OF COMMUNITY ALLERGY TO HOSPITAL PENICILLIN V5869 LONG-TERM 10-19-2013 [place] (CURRENT) [facility] USE OF HOSPITAL OTHER MEDICATIONS V8539 BODY MASS 10-19-2013 [place] INDEX COMMUNITY 39.0-39.9 HOSPITAL ADULT 20128 TOTAL OR 09-14-2013 [facility] SERV SENILE FOUNDATIO CATARACT 18234 OTHER 09-14-2013 [place] CONVULSIONS 46116 OTHER 08-01-2013 ARNOLD KAYCE MALAISE AND FATIGUE Medications Na ND Rx Da Fi Fi Am Da Di Ph RX Ph St me C No te ll ll ou ys ag ar # ys at rm s nt no ma ic us Or Da si cy ia de te s n re d PI 00 09 10 60 30 00 OR Ac RO 37 -0 -0 .0 00 L- ti XI 80 9- 6- 00 07 MA ve CA 46 20 20 48 RT M 60 17 17 63 10 1 13 PH AR MG MA CY CA PS #5 UL 91 E AL 00 08 09 60 30 00 OR Ac LE 11 -2 -1 .0 00 L- ti RG 32 0- 5- 00 08 MA ve Y- 01 20 20 84 RT CO 36 17 17 03 NG 0 18 PH ES AR TI MA ON CY RL #5 F 91 12 H TA B IA 00 08 09 12 30 00 OR Ac IM 59 -1 -0 0. 00 L- ti ID 15 1- 8- 00 07 MA ve ON 32 20 20 0 50 RT E 10 17 17 34 25 1 41 PH 0 AR MG MA CY TA BL #5 ET 91 LE 31 08 09 60 30 00 OR Ac VE 72 -0 -0 .0 00 L- ti TI 20 6- 1- 00 07 MA ve RA 53 20 20 50 RT CE 81 17 17 22 TA 2 60 PH M AR 75 MA 0 CY MG #5 TA 91 BL ET HY 00 08 09 [address] 40 -0 -0 .0 00 L- ti OC 60 7- 1- 00 02 MA ve OD 12 20 20 24 RT ON 30 17 17 14 -A 1 40 PH CE AR TA MA MS CY NO PH #5 EN 91 5- 32 5 PI 00 08 09 60 30 00 OR Ac RO 37 -0 -0 .0 00 L- ti XI 80 8- 1- 00 07 MA ve CA 46 20 20 48 RT M 60 17 17 63 10 1 13 PH AR MG MA CY CA PS #5 UL 91 E LE 31 08 60 30 00 [place] Ac VE 72 -1 -1 .0 00 L- ti TI 20 4- 1- 00 07 MA ve RA 53 20 20 48 RT CE 81 17 17 35 TA 2 53 PH M AR 75 MA 0 CY MG #5 TA 91 BL ET AL 00 08 60 30 00 WA Ac LE 11 -1 -1 .0 00 L- ti RG 32 8- 1- 00 08 MA ve Y- 01 20 20 84 RT CO 36 17 17 03 NG 0 18 PH ES AR TI MA ON CY RL #5 F 91 12 H TA B FU 69 07 08 90 90 00 OR Ac RO 31 -1 -1 .0 00 L- ti SE 50 8- 1- 00 07 MA ve MS 11 20 20 49 RT DE 71 17 17 93 0 76 PH 40 AR MA MG CY TA #5 BL 91 ET PI 00 08 60 30 00 OR Ac RO 37 -1 -0 .0 00 L- ti XI 80 0- 4- 00 07 MA ve CA 46 20 20 48 RT M 60 17 17 63 10 1 13 PH AR MG MA CY CA PS #5 UL 91 E IA 08 12 30 00 OR Ac IM 59 -0 -0 0. 00 L- ti ID 15 8- 4- 00 07 MA ve ON 32 20 20 0 46 RT E 10 17 17 58 25 1 45 PH 0 AR MG MA CY TA BL #5 ET 91 LE 07 60 30 00 WA Ac VE 72 -2 -1 .0 00 L- ti TI 20 0- 4- 00 07 MA ve RA 53 20 20 48 RT CE 81 17 17 35 TA 2 53 PH M AR 75 MA 0 CY MG #5 TA 91 BL ET AL 07 60 30 00 WA Ac LE 11 -2 -1 .0 00 L- ti RG 32 0- 4- 00 08 MA ve Y- 01 20 20 83 RT CO 36 17 17 90 NG 0 71 PH ES AR TI MA ON CY RL #5 F 91 12 H TA B IA 00 06 06 12 30 00 OR Ac IM 59 -0 -3 0. 00 [...] LI 68 06 06 90 90 00 [place] Ac SI 18 -0 -3 .0 00 L- ti NO 00 5- 0- 00 07 MA ve IA 51 20 20 49 RT IL 40 17 17 18 1 00 PH 10 AR MA MG CY TA #5 BL 91 ET LE 31 05 06 60 30 00 WA Ac VE 72 -1 -1 .0 00 L- ti TI 20 8- 6- 00 07 MA ve RA 53 20 20 48 RT CE 81 17 17 35 TA 2 53 PH M AR 75 MA 0 CY MG #5 TA 91 BL ET AL 00 05 06 60 30 00 OR Ac LE 11 -1 -0 .0 00 [...] PI 00 05 06 54 27 00 OR Ac RO 37 -0 -0 .0 00 L- ti XI 80 9- 2- 00 07 MA ve CA 46 20 20 47 RT M 60 17 17 38 10 1 54 PH AR MG MA CY CA PS #5 UL 91 E LE 31 04 05 60 30 00 WA Ac VE 72 -2 -1 .0 00 L- ti TI 20 1- 9- 00 07 MA ve RA 53 20 20 48 RT CE 81 17 17 35 TA 2 53 PH M AR 75 MA 0 CY MG #5 TA 91 BL ET PH 51 04 05 60 30 00 WA Ac EN 29 -2 -1 .0 00 L- ti OB 30 5- 9- 00 04 MA ve AR 62 20 20 52 RT BI 60 17 17 90 TA 1 97 PH L AR 32 MA .4 CY MG #5 91 TA BL ET AL 00 04 05 60 30 00 WA Ac LE 11 -1 -1 .0 00 L- ti RG 32 8- 2- 00 08 MA ve Y- 01 20 20 83 RT CO 36 17 17 90 NG 0 71 PH ES AR TI MA ON CY RL #5 F 91 12 H TA B IA 00 04 05 12 30 00 OR Ac IM 59 -0 -0 0. 00 L- ti ID 15 8- 5- 00 07 MA ve ON 32 20 20 0 46 RT E 10 17 17 58 25 1 45 PH 0 AR MG MA CY TA BL #5 ET 91 PI 00 04 04 54 27 00 OR Ac RO 37 -0 -2 .0 00 L- ti XI 80 2- 8- 00 07 MA ve CA 46 20 20 47 RT M 60 17 17 38 10 1 54 PH AR MG MA CY CA PS #5 UL 91 E PH 51 03 04 60 30 00 OR Ac EN 29 -2 -2 .0 00 L- ti OB 30 5- 1- 00 04 MA ve AR 62 20 20 52 RT BI 60 17 17 90 TA 1 97 PH L AR 32 MA .4 CY MG #5 91 TA BL ET LI 54 03 04 90 90 00 OR Ac SI 45 -1 -1 .0 00 L- ti NO 80 6- 4- 00 07 MA ve IA 99 20 20 45 RT IL 71 17 17 73 0 79 PH 10 AR MA MG CY TA #5 BL 91 ET AL 00 03 04 60 30 00 OR Ac LE 11 -1 -1 .0 00 L- ti RG 32 6- 4- 00 08 MA ve Y- 01 20 20 83 RT CO 36 17 17 74 NG 0 84 PH ES AR TI MA ON CY RL #5 F 91 12 H TA B FU 00 03 04 90 90 00 OR Ac RO 78 -1 -0 .0 00 L- ti SE 11 0- 7- 00 07 MA ve MS 96 20 20 42 RT DE 61 17 17 49 0 13 PH 40 AR MA MG CY TA #5 BL 91 ET PI 29 03 03 60 30 00 OR Ac RO 03 -0 -3 .0 00 L- ti XI 30 2- 1- 00 07 MA ve CA 01 20 20 47 RT M 20 17 17 38 10 1 54 PH AR MG MA CY CA PS #5 UL 91 E IA 00 03 03 12 30 00 OR Ac IM 59 -0 -3 0. 00 L- ti ID 15 7- 1- 00 07 MA ve ON 32 20 20 0 46 RT E 10 17 17 58 25 1 45 PH 0 AR MG MA CY TA BL #5 ET 91 PH 51 02 03 60 30 00 OR Ac EN 29 -1 -1 .0 00 L- ti OB 30 2- 0- 00 04 MA ve AR 62 20 20 52 RT BI 60 17 17 90 TA 1 97 PH L AR 32 MA .4 CY MG #5 91 TA BL ET IA 00 02 03 90 30 00 OR Ac ED 14 -0 -1 .0 00 L- ti NI 39 9- 0- 00 07 MA ve SO 74 20 20 46 RT NE 01 17 17 96 5 0 82 PH AR MG MA CY TA BL #5 ET 91 AL 00 02 03 60 30 00 OR Ac LE 11 -1 -1 .0 00 L- ti RG 32 4- 0- 00 08 MA ve Y- 01 20 20 83 RT CO 36 17 17 74 NG 0 84 PH ES AR TI MA ON CY RL #5 F 91 12 H TA B PH 65 02 03 12 30 00 OR Ac EN 16 -0 -0 0. 00 L- ti YT 20 6- 3- 00 07 MA ve OI 21 20 20 0 46 RT N 25 17 17 58 SO 0 79 PH D AR EX MA T CY 10 0 #5 MG 91 CA P IA 00 02 03 12 30 00 OR Ac IM 59 -0 -0 0. 00 L- ti ID 15 6- 3- 00 07 MA ve ON 32 20 20 0 46 RT E 10 17 17 58 25 1 45 PH 0 AR MG MA CY TA BL #5 ET 91 IA 00 01 02 90 30 00 OR Ac ED 14 -1 -1 .0 00 L- ti NI 39 2- 0- 00 07 MA ve SO 74 20 20 45 RT NE 01 17 17 70 5 0 00 PH AR MG MA CY TA BL #5 ET 91 PH 65 01 02 12 30 00 OR Ac EN 16 -1 -1 0. 00 L- ti YT 20 4- 0- 00 07 MA ve OI 21 20 20 0 45 RT N 25 17 17 86 SO 0 80 PH D AR EX MA T CY 10 0 #5 MG 91 CA P PH 51 01 02 60 30 00 OR Ac EN 29 -1 -1 .0 00 L- ti OB 30 5- 0- 00 04 MA ve AR 62 20 20 52 RT BI 60 17 17 90 TA 1 39 PH L AR 32 MA .4 CY MG #5 91 TA BL ET IA 00 12 01 12 30 00 [place] Ac IM 59 -2 -2 0. 00 L- ti ID 15 9- 7- 00 07 MA ve ON 32 20 20 0 45 RT E 10 16 17 49 25 1 57 PH 0 AR MG MA CY TA BL #5 ET 91 AL 00 12 01 60 30 00 WA Ac LE 11 -2 -2 .0 00 L- ti RG 32 9- 7- 00 08 MA ve Y- 01 20 20 83 RT CO 36 16 17 74 NG 0 84 PH ES AR TI MA ON CY RL #5 F 91 12 H TA B PH 51 12 01 60 30 00 WA Ac EN 29 -1 -1 .0 00 L- ti OB 30 8- 3- 00 04 MA ve AR 62 20 20 52 RT BI 60 16 17 85 TA 1 10 PH L AR 32 MA .4 CY MG #5 91 TA BL ET PH 65 12 01 12 30 00 OR Ac EN 16 -1 -1 0. 00 L- ti YT 20 5- 3- 00 07 MA ve OI 21 20 20 0 45 RT N 25 16 17 86 SO 0 80 PH D AR EX MA T CY 10 0 #5 MG 91 CA P LI 54 12 01 90 90 00 OR Ac SI 45 -0 -0 .0 00 L- ti NO 80 8- 9- 00 07 MA ve IA 99 20 20 45 RT IL 71 16 17 73 0 79 PH 10 AR MA MG CY TA #5 BL 91 ET Procedures Procedure DOS Code Location Performer Comment [facility] [address] [facility] 7 JR JR XM&EVAL INTERMEDI ATE ESTAB PT CT THORAX 01364 [facility] W/O 7 HEALTHCAR HEALTHCAR CONTRAST E E MATERIAL [facility] COLLECTIO 04598 [facility] N VENOUS 6 HEALTHCAR HEALTHCAR BLOOD E E VENIPUNCT [facility] URE CALCIUM 77718 [facility] IONIZED 6 [facility] [place] [address] [facility] THYROID 6 [facility] HEALTHCAR STIMULATI E E NG [facility] [address] [facility] MAGNESIUM 6 [facility] [place] [address] [facility] PARATHORM 6 [facility]ALTH[facility] HEALTHCAR [place] [address] [facility] PHOSPHORU 6 HEALTHCAR HEALTHCAR S E E INORGANIC [facility] [place] [address] [facility] SOMATOMED 6 [facility]ALTHCAR HEALTHCAR IN E E HOSPITALS HOSPITALS RADEX 80497 [facility] HAND 2 6 Y Y VIEWS [facility] RADEX 27122 [facility] HIPS 6 Y Y BILATERAL [facility] WITH PELVIS [address] [facility] UN[facility]ERS ELECTROPH 6 Y Y ORETIC [facility] FRACTJ&QU ANTJ SERUM PROTEIN 87244 [facility] ELECTROP 6 Y Y FXJ&SHAILA [facility] [place] [address] [facility] UNIVERS ALDOLASE 6 Y Y HOSPITAL HOSPITAL CREATINE [address] [facility] UN[facility]ERS KINASE 6 Y Y TOTAL [facility] SEDIMENTA 78414 [facility] TION RATE 6 Y Y RBC [facility] AUTOMATED PROTEIN 02108 [facility] TOTAL 6 Y Y XCPT [facility] REFRACTOM ETRY URINE RADIOLOGI 62172 [facility] UNIVERS C 6 Y Y EXAMINATI [facility] ON KNEE 1/2 VIEWS RADEX 78981 [place] [facility] WRIST 2 6 MEDICAL HENRRY VIEWS SERV FOUNDATIO N RADEX 85755 [facility] ANKLE 6 Y Y COMPLETE [facility] MINIMUM 3 VIEWS RADEX 24766 [facility] FOOT 6 Y Y [facility] MINIMUM 3 VIEWS RADEX 00077 [facility] SPINE 6 Y Y LUMBOSACR [facility] AL 2/3 VIEWS COLLECTIO 09590 [facility] N VENOUS 6 Y Y BLOOD [facility] VENIPUNCT URE C-REACTIV 89782 [facility] E PROTEIN 6 Y Y HOSPITAL HOSPITAL RADIOLOGI 99624 [facility] EXAM 6 Y Y CHEST 2 [facility] HOSP[facility] VIEWS FRONTAL&L ATERAL RADIOLOGI 84494 [facility] EXAM 6 Y Y SACROILIA [facility] C JOINTS 3/MORE VIEWS RADEX 18327 [facility] SHOULDER 6 Y Y [facility] MINIMUM 2 VIEWS BLOOD 30772 [facility] COUNT 6 Y Y COMPLETE [facility] AUTO&AUTO DIFRNTL WBC URNLS DIP 12881 [facility] UNIVERS 6 Y Y STICK/TAB HOSPITAL HOSPITAL LET REAGENT AUTO MICROSCOP Y BLOOD 66765 [facility] COUNT 6 Y Y COMPLETE HOSPITAL HOSPITAL AUTO&AUTO DIFRNTL WBC RHEUMATOI 42321 [facility] D FACTOR 6 Y Y QUANTITAT [facility] MATTY HEPATITIS 53464 [facility] C 6 Y Y [facility] HOSPITAL SYPHILIS 80385 [facility] TEST 6 Y Y NON-TREPO [facility] NEMAL ANTIBODY QUAL C-REACTIV 99367 [facility] E PROTEIN 6 Y Y HOSPITAL HOSPITAL COMPREHEN 00836 [facility] SIVE 6 Y Y METABOLIC [facility] PANEL COLLECTIO 15838 [facility] N VENOUS 6 Y Y BLOOD [facility] VENIPUNCT URE COMPLEMEN 68778 [facility] T ANTIGEN 6 Y Y EACH [facility] HOSPITAL COMPONENT CYCLIC 81773 [facility] CITRULLIN 6 Y Y ATED [facility] PEPTIDE ANTIBODY EXTRACTAB 41147 [facility] LE 6 Y Y NUCLEAR [facility] ANTIGEN ANTIBODY ANY METHOD HEPATITIS 17886 [facility] B CORE 6 Y Y ANTIBODY HOSPITAL [facility] [place] [address] [facility] HEPATITIS 6 Y Y B HOSPITAL [facility] SURFACE ANTIGEN ANTINUCLE 80500 [facility] AR 6 Y Y ANTIBODIE [facility] S LULA FLUORESCE 75012 [facility] NT 6 Y Y NONNFCT [facility] AGT ANTB SCREEN EA ANTIBODY SEDIMENTA 73265 [facility] UNIVERS TION RATE 6 Y Y RBC [facility] AUTOMATED URNLS DIP 96975 [facility] UNIVERS 6 Y Y STICK/TAB HOSPITAL HOSPITAL LET RGNT AUTO W/O MICROSCOP Y DUP-SCAN 14120 [facility] NUR XTR VEINS 6 [facility] INC INC UNILATERA L/LIMITED STUDY SEDIMENTA 13700 [facility] TION RATE 6 [facility] [place] [address] [facility] BLOOD/URI 6 [facility] C ACID [facility]INGS HOLDINGS ANTINUCLE 78687 [facility] AR 6 [facility] ANTIBODIE HOLDINGS HOLDINGS S LULA COMPREHEN 00630 [facility] SIVE 6 [facility] METABOLIC HOLD[facility] HOLDINGS PANEL C-REACTIV 44233 [facility] E PROTEIN 6 [facility] HOLDINGS RHEUMATOI 07465 [facility] D FACTOR [facility] QUANTITAT HOLDINGS HOLDINGS MATTY BLOOD 69134 [facility] COUNT [facility] COMPLETE HOLDINGS HOLDINGS AUTO&AUTO DIFRNTL WBC RADEX 49276 [place] [facility] ELBOW 2 6 MEDICAL VIEWS IMAGING ASS HEMOGLOBI 19446 Petey GUIDRYLA N 6 ARUNA FRAUSTO GLYCOSYLA PSC ISABELA A1C LIPID 52320 Petey Rios KILALEJANDRA PANEL 6 ARUNA TODD JEPetey PSC RADEX 75605 [facility]OM[facility] NUR ELBOW 6 [facility] H[facility]OS[facility] COMPLETE INC INC MINIMUM 3 VIEWS THERAPEUT 19238 [facility] NUR IC 6 [facility] PROPHYLAC INC INC TIC/DX INJECTION SUBQ/IM UNCLASSIF J3490 [facility] NUR IED DRUGS 6 [facility] INC INC DRUG 42287 [facility] NUR SCREEN 6 [facility] HOSP QUANTITAT INC INC MATTY PHENYTOIN TOTAL COLLECTIO 90692 [facility] NUR N VENOUS 6 [facility] H[facility]OSP BLOOD INC INC VENIPUNCT URE ELECTROEN 18742 [place]- CEPHALOGR 6 MEDICAL CLAY KAYLAH AM W/REC SERV AWAKE&ASL FOUNDATIO EEP N ANES 77617 COMMUNITY FEEBACK LOWER 6 ANESTH REE INTESTINE OF THE BLUE ENDOSCOPY DISTAL DUODENUM COLONOSCO 98793 [facility] NUR PY FLX DX 6 [facility] W/COLLJ INC INC SPEC WHEN PFRMD UNCLASSIF J3490 BO[facility] NUR IED DRUGS 6 [facility] INC INC DXA BONE 65881 [facility] 6 Y Y STUDY 1/> HOSPITAL HOSPITAL SITES AXIAL SKEL INJECTION A9585 [facility] 6 Y Y [facility] L 0.[address] B[address] [facility] UNIVERS BRAIN 6 Y Y STEM W/O [facility] HOSPITAL W/CONTRAS T MATERIAL CYANOCOBA 42640 [facility] UNIVERS HERNESTO 6 Y Y VITAMIN [facility] B-12 COLLECTIO 92485 [facility] N VENOUS 6 Y Y BLOOD [facility] VENIPUNCT URE DRUG 03434 [facility] SCREEN 6 Y [facility] AMTTY PHENOBARB ITAL BLOOD 21814 [facility] UNIVERS COUNT 6 Y Y COMPLETE [facility] AUTOMATED COMPREHEN 84833 [facility] SIVE 6 Y Y [facility] PANEL [facility]UG 66748 [facility] SCREEN 6 Y Y [facility] [place] PHENYTOIN TOTAL DRUG 24450 [facility] NUR SCREEN 6 [facility] QUANTITAT INC INC [place] PHENYTOIN TOTAL COMPREHEN 27683 [facility] NUR SIVE 6 [facility] METABOLIC INC INC PANEL BLOOD 39825 [facility] NUR COUNT 6 [facility] COMPLETE INC INC AUTO&AUTO DIFRNTL WBC RADIOLOGI 33541 [facility] NUR C EXAM 6 [facility] CHEST 2 INC INC VIEWS FRONTAL&L ATERAL NATRIURET 24451 [facility] N[facility] IC 6 [facility] PEPTIDE INC INC HEMOGLOBI 93153 [facility] NUR N 6 [facility] GLYCOSYLA INC INC ISABELA A1C COLLECTIO 17680 [facility] NUR N VENOUS 6 [facility] BLOOD INC INC VENIPUNCT URE LOCM Q9967 [facility] [phone] Y Y MG/ML [facility] IODINE CONCENTRA TION PER ML CREATINE 21851 [facility] N[facility] KINASE 5 [facility] TOTAL INC INC ECG 81156 [facility] ROUTINE 5 [facility] ECG INC INC W/LEAST 12 LDS TRCG ONLY W/O I&[place] [address] BO[facility] NUR HEAD/BRAI 5 [facility] N W/O INC INC CONTRAST MATERIAL THROMBOPL 40572 [facility] N[facility] ASTIN 5 [facility] TIME INC INC PARTIAL PLASMA/WH OLE BLOOD CREATINE 44672 BO[facility] NUR KINASE MB 5 [facility] [place] [address] SARTHAK BRISAKINS ANGIOGRAP 5 [facility] HY NECK SERV W/CONTRAS FOUNDATIO T/NONCONT N RAST BLOOD 85626 [facility] N[facility] COUNT 5 [facility] COMPLETE INC INC AUTO&[place] [address] BO[facility] NUR TROPONIN 5 [facility] [place] [address] SARTHAK LUKINS ANGIOGRAP 5 [facility] HY HEAD SERV W/CONTRAS FOUNDATIO T/NONCONT N RAST RADIOLOGI 15367 [facility] NUR C EXAM 5 [facility] CHEST 2 INC INC VIEWS FRONTAL&L ATERAL ECG 15063 BO[facility] DIMAS ROUTINE 5 [facility] W/LEAST P 12 LDS I&R ONLY COMPREHEN 32439 [facility] NUR SIVE 5 [facility] METABOLIC INC INC PANEL GROUND A0425 [facility] PER SERVICE SERVICE STATUTE [facility] [address] SARTHAK RINCON 5 MEDICAL JR LASER SERV SURGERY FOUNDATIO N MANUAL 36176 [facility] NUR THERAPY 5 [facility] TQS 1/> INC INC REGIONS EACH 15 MINUTES THERAPEUT 13799 BOOM NUR IC PX 1/> 5 [facility] AREAS INC INC EACH 15 MIN EXERCISES THERAPEUT 23085 [facility] NUR IC PX 1/> [facility] EACH 15 MIN EXERCISES MANUAL 31826 [facility] THERAPY 5 [facility] TQS 1/> INC INC REGIONS EACH 15 MINUTES MANUAL 85248 [facility] NUR THERAPY 5 [facility] TQS 1/> INC INC REGIONS EACH 15 MINUTES THERAPEUT 33194 BOOM NUR IC PX 1/> 5 [facility] INC EACH 15 MIN EXERCISES THERAPEUT 96155 BOOM BOOM IC PX 1/> 5 [facility] INC EACH 15 MIN EXERCISES MANUAL 93161 BOOM BOOM THERAPY 5 [facility] TQS 1/> INC INC REGIONS EACH 15 MINUTES MANUAL 36296 BOOM BOOM THERAPY 5 [facility] TQS 1/> INC INC REGIONS EACH 15 MINUTES THERAPEUT 08137 BOOM NUR IC PX 1/> 5 [facility] INC INC EACH 15 MIN EXERCISES THERAPEUT 17720 BOOM NUR IC PX 1/> 5 [facility] INC INC EACH 15 MIN EXERCISES MANUAL 85440 BO[facility] BOOM THERAPY 5 [facility] TQS 1/> INC INC REGIONS EACH 15 MINUTES MANUAL 80534 BO[facility] BOOM THERAPY 5 [facility] TQS 1/> INC INC REGIONS EACH 15 MINUTES THERAPEUT [address]2384 BOOM STREETON IC PX 1/> 5 [facility] INC INC EACH 15 MIN EXERCISES MANUAL 55324 BO[facility] THERAPY 5 [facility] TQS 1/> INC INC REGIONS EACH 15 MINUTES ORTHOTIC 75737 BOOM NUR MGMT&GEOVANNI 5 [facility] [place] UXTR INC INC LXTR&/TRN K EA 15 MANUAL 46859 BO[facility] NUR THERAPY 5 [facility] TQS 1/> INC INC REGIONS EACH 15 MINUTES MANUAL 90993 BO[facility] NUR THERAPY 5 [facility] TQS 1/> INC INC REGIONS EACH 15 MINUTES MANUAL 63522 BOOM NUR THERAPY 5 [facility] TQS 1/> INC INC REGIONS EACH 15 MINUTES MANUAL [address] THERAPY 5 [facility] TQS 1/> INC INC REGIONS EACH 15 MINUTES PHYSICAL 34767 [facility] NUR THERAPY 5 [facility] EVALUATIO INC INC N COLLECTIO 78903 BO[facility] NUR N VENOUS 5 [facility] [place] [address] BO[facility] NUR THYROID 5 [facility] ST[place] [address] BOOM NUR THYROXINE 5 [facility] TOTAL INC INC BLOOD 67529 BOOM BOOM COUNT 5 [facility] COMPLETE INC INC AUTO&AUTO DIFRNTL WBC HEMOGLOBI 55744 BO[facility] BOOM N 5 [facility] GLYCOSYLA INC INC ISABELA A1C LIPID 14291 BOOM NUR PANEL 5 [facility] INC INC COMPREHEN 77186 BOOM NUR SIVE 5 [facility] METABOLIC INC INC PANEL INJECTION J3010 [place] [facility] 0.1 MG RINGERS J7120 [facility] LACTATE 4 [facility] UP TO 1000 CC INJECTION J2001 [address] HCL INTRAVENO US INFUS 10 MG CATARACT [address] [facility] ANEST[place]ESI [address] [place] [facility] 4 ANESTHESI LENS A GROUP SURGERY PS ANESTHESI 08077 [place] SUREKHA A EYE 4 ANESTHESI KAYCE LENS A GROUP SURGERY PS CATARACT [address] [facility] INJECTION J[address] [facility] HCL INTRAVENO US INFUS 10 MG RINGERS J7120 [facility] LACTATE 4 [facility] UP TO 1000 CC INJECTION J3010 [facility] 4 [facility] 0.1 MG INJECTION J2250 [address] [facility] HCL PER 1 MG INJECTION J2405 [address] ON HCL PER 1 MG Encounters Encounter Start End Date Code Location Performer Type Date OFFICE 38624 SARTHAK RICOEN 7 7 MEDICAL III T VISIT SERV 25 FOUNDATIO MINUTES N OFFICE 20879 OUTPATIEN 7 7 HEALTHCAR T VISIT [address] [facility] [place] - 7 7 [facility] OUTPATIEN E T HOSPITALS OFFICE 19121 SARTHAK RAMOSLER OUTPATIEN 7 7 MEDICAL T VISIT SERV 15 FOUNDATIO MINUTES N OFFICE 53813 A Gabriel FUENTES OUTPATIEN 7 7 ARUNA TODD T VISIT PSC 15 [facility] [place] - 7 7 [facility]ALTHCAR OUTPATIEN E T HOSPITALS OFFICE 76995 SARTHAK RAMOSLER OUTPATIEN 7 7 MEDICAL T VISIT SERV 25 FOUNDATIO MINUTES N OFFICE 72200 [facility] 7 7 [facility]ALTH[facility] T VISIT 5 E MINUTES HOSPITALS OFFICE 61551 SARTHAK LEERI OUTPATIEN 7 7 MEDICAL T VISIT SERV 25 FOUNDATIO MINUTES N OFFICE 65216 SARTHAK RAMOSLER OUTPATIEN 7 7 MEDICAL T VISIT SERV 25 FOUNDATIO MINUTES [facility] 7 7 [facility] OUTPATIEN E T HOSPITALS OFFICE 06036 [facility] 7 7 HEALTHCAR T VISIT 5 E MINUTES [facility] [place] - 7 7 [facility]ALTHCAR OUTPATIEN E T HOSPITALS OFFICE 94040 [facility] 6 6 MEDICAL MAR T VISIT SERV 25 FOUNDATIO MINUTES [facility] - 6 6 [facility]CAR OUTPATIEN E [facility] UNIVERSIT [facility] 6 6 [facility] T OFFICE 52787 [facility] MEDICAL MAR T VISIT SERV 25 FOUNDATIO MINUTES N OFFICE 03868 SARTHAK PICKARD CONSULTAT 6 6 MEDICAL MAR ION SERV NEW/ESTAB FOUNDATIO PATIENT N 40 [facility] UNIVERSIT - 6 6 Y [facility] T OFFICE 74624 A Gabriel FUENTES OUTPATIEN 6 6 ARUNA FRAUSTO T VISIT PSC 15 [facility] BOOM - 6 6 MEM [facility] OUTPATIEN INC T HOSPITAL BOOM - 6 6 [facility] OUTPATIEN [facility] T OFFICE 92549 Petey FUENTES OUTPATIEN 6 6 ARUNA FRAUSTO T 30 PSC MINUTES HOSPITAL BOOM - 6 6 [facility] OUTPATIEN [facility] T EMERGENCY 07629 ANJANA CORLEY 6 6 PHYSICIAN U [facility] T VISIT MODERATE SEVERITY EMERGENCY 94088 BOOM 6 6 [facility] T VISIT LOW/MODER SEVERITY OFFICE 27984 [facility] 6 6 PHYSICIAN NIRAV T VISIT S GROUP 15 MINUTES HOSPITAL BOOM - 6 6 [facility] OUTPATIEN [facility] T OFFICE 23389 [facility] OUTPATIEN 6 6 PHYSICIAN NIRAV T VISIT S GROUP 15 MINUTES HOSPITAL [facility]ERS[facility] - 6 6 [facility] BOOM - 6 6 MEM [facility] OUTPATIEN [facility] T OFFICE 80731 [facility] 6 6 PHYSICIAN CAM T NEW 30 S GROUP MINUTES [facility]OSP[facility] OFF[facility] 92127 SARTHAK QUEEN OUTPATIEN 6 6 MEDICAL OSMAR T NEW 45 SERV MINUTES FOUNDATIO N OFFICE 67468 UNIVERSIT OUTPATIEN 6 6 Y T VISIT 5 HOSPITAL MINUTES OFFICE 91792 [facility] OUTPATIEN 6 6 PHYSICIAN NIRAV T VISIT S GROUP 15 MINUTES HOSPITAL BOOM - 6 6 [facility] OUTPATIEN [facility] T OFFICE 28384 [facility] OUTPATIEN 6 6 PHYSICIAN NIRAV T VISIT S GROUP 25 MINUTES EMERGENCY 72197 ANJANA BRYANT DEPT 5 5 PHYSICIAN FOR VISIT S, PLLC HIGH SEVERITY& THREAT FUNCJ EMERGENCY 86531 BOOM 5 5 [facility] VISIT HIGH/URGE NT SEVERITY [facility] UNIVERS[facility] - 5 5 [facility] BOOM - 5 5 [facility] BOOM [facility] 5 5 [facility] BOOM - 5 5 [facility] OFFICE 52002 LIAN UNDERWOOD 4 4 KAYCE KAYCE T VISIT 15 MINUTES [facility] KRIS - 4 4 [facility] KRIS - 4 4 [facility] T OFFICE 09476 [facility] KAYCE KAYCE T VISIT 15 MINUTES
--- OUTSIDE RECORDS SUMMARY | 2017-03-06 05:21 | External Medical Summary Rpt | CCD ---
Author Author , PRADEEP Joseph PRADEEP Address Unknown Phone [email or web address] Care Team Providers Care Java [id number] Lead Name Role Phone A Gabriel VALDOVINOS MD PSC, Petey Unavailable Unavailable Gabriel VALDOVINOS MD PSC ARNOLD KAYCE, ARNOLD Unavailable Unavailable KAYCE ARNOLD KAYCE, ARNOLD Unavailable Unavailable KAYCE [facility] KAYLA[facility], Unavailable Unavailable [facility] KAYLAH BESSON MERVAT, BESSON Unavailable Unavailable MERVAT [facility], MYERS ALL Unavailable Unavailable [facility] Unavailable Unavailable [facility]OSP[facility], [facility] Unavailable Unavailable SERVICE, [facility] TRES JR, TRES Unavailable Unavailable JR TRES JR, TRES Unavailable Unavailable JR FEEBACK REE, FEEBACK Unavailable Unavailable REE LEAH NIRAV, LEAH Unavailable Unavailable NIRAV [facility] Unavailable Unavailable INC, [facility] Unavailable Unavailable HOSPITAL P, [facility] P BRET, BRET Unavailable Unavailable BRET OSMAR, BRET Unavailable Unavailable OSMAR [facility], Unavailable Unavailable [facility] JOSE L III, JOSE L Unavailable Unavailable III [facility] Unavailable Unavailable GROUP PS, [facility] Unavailable Unavailable [facility], [facility] KHAWARI, KHAWARI Unavailable Unavailable [...] ABDON JENNA, ABDON JENNA Unavailable Unavailable SOTINGEANU VIY, Unavailable Unavailable SOTINGEANU IVY VINAY HENRRY, VINAY Unavailable Unavailable HENRRY SUREKHA KAYCE, SUREKHA Unavailable Unavailable KAYCE [facility] Unavailable Unavailable HOSPITALS, [facility], Unavailable Unavailable [facility] Unavailable Unavailable FOR Purpose Continuity of Care Document - 08-01-2013 through 2016 Problems Code Diagnosis DOS Provider Status M2550 PAIN IN 12-28-2016 [place] [facility] U[facility]PECIF[facility] JOINT [facility] M4810 ANKYLOSING 12-28-2016 [facility] HYPEROSTOSI SERV S SITE FOUNDATION UNSPECIFIED Z791 MCC 12-28-2016 [facility] CURR [facility] NON-STEROID [facility]OUND[facility] AL&ANTI-INF LAMMATORIES [id number] LOC-REL SX 12-24-2016 [facility] W/SPS HOSPITALS INTRACT W/O STAT EPI Q858 OTHER 12-24-2016 [facility] S NOT HOSPITALS ELSEWHERE CLASSIFIED H4089 OTHER 10-21-2016 A Gabriel FERRER MD PSC [place] H409 UNSPECIFIED 10-21-2016 A Gabriel VALDOVINOS [place] PSC I71619 OTHER 10-01-2016 [facility] VITREOUS OPACITIES BILATERAL Z961 PRESENCE OF 10-01-2016 [facility] INTRAOCULAR LENS R208 OTHER 09-10-2016 [facility] OF SKIN HOSPITALS SENSATION M779 ENTHESOPATH 07-02-2016 [facility] Y SERV UNSPECIFIED FOUNDATION J9811 ATELECTASIS 06-03-2016 [facility] R918 OTHER 06-03-2016 [facility] ABNORMAL HOSPITALS FINDING OF LUNG FIELD M7989 OTHER 04-29-2016 [facility] SPEC[facility] SERV SOFT TISSUE FOUNDATION DISORDERS E08387 OTHER LONG 04-29-2016 [facility] CURRENT HOSPITALS DRUG THERAPY M160 BILATERAL 03-31-2016 [facility] PRIMARY [facility] OSTEOARTHRI FOUNDATION TIS OF HIP M170 BILATERAL 03-31-2016 [facility] OSTEOARTHRI [facility]OUNDATION TIS OF KNEE M1990 UNSPECIFIED 03-31-2016 [facility] OSTEOARTHRI [facility] TIS UNSPECIFIED SITE X50195 EFFUSION 03-31-2016 [facility] HAND R768 OTH SPEC 03-31-2016 [facility] IMMUNOLOGIC AL FIND IN SERUM R809 PROTEINURIA 03-31-2016 [place] [facility] UNSPECIFIED [facility]OUNDATION Z0000 ENCOUNTER 03-31-2016 [facility] MED EXAM W/O ABNORMAL FIND 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 [facility] NON-NEOPLAS SERV TIC NEVUS FOUNDATION R0602 SHORTNESS 02-25-2016 [facility] OF BREATH SERV FOUND[facility] R0789 OTHER CHEST 02-25-2016 [facility] PA[facility] Z8679 PERSONAL 02-25-2016 [facility] H[facility] OTH SERV DISEASES FOUNDATION CIRCULATORY SYSTEM D229 MELANOCYTIC 02-07-2016 Petey Gabriel MCQUEEN MD PSC UNSPECIFIED I10 ESSENTIAL 12-31-2015 [facility] HYPERTENSIO HOLDINGS N R569 UNSPECIFIED 12-31-2015 [facility] CONVULSIONS HOLDINGS S26662 EFFUSION 11-26-2015 [facility] LEFT HAND [facility] INC R609 EDEMA 11-26-2015 [facility] UNSPECIFIED PHYSICIANS, PLLC J01223 PERSONAL 11-26-2015 [facility] HISTORY OF [facility] NICOTINE INC DEPENDENCE Q04187 EPILEPSY 11-04-2015 [facility] UNS NOT PHYSICIANS INTRACT W/O GROUP STATUS EPILEPTICUS R9401 ABNORMAL 09-18-[address] [facility] PHALOGRAM EEG Z1211 ENCOUNTER 09-05-2015 [facility] SCREENING PHYSICIANS MALIGNANT GROUP NEOPLASM OF COLON R51 HEADACHE 08-22-2015 [facility] meets G463 BRAIN STEM 08-13-2015 [facility] SYNDROME W187KWT UNS ADVERS 08-13-2015 [facility] DRUG/MEDICA MENT INITIAL ENCNTR J069 ACUTE UPPER 08-09-2015 [facility] PHYSICIANS RESPIRATORY GROUP INFECTION UNSPECIFIED R05 COUGH 06-27-2015 [facility] 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 [facility] SLEEP PHYSICIANS APNEA ADULT GROUP PEDIATRIC L989 DISORDER 06-26-2015 [facility] THE SKIN & PHYSICIANS SUBCUTANEOU GROUP S TISSUE UNS G441 VASCULAR 04-03-2015 [facility] HEADACHE PHYSICIANS, NOT PLLC ELSEWHERE CLASSIFIED M3130 WEGENERS 04-03-2015 [facility] GRANULOMATO SERV SIS W/O FOUNDATION RENAL INVOLVEMENT Q282 ARTERIOVENO 04-03-2015 [facility] P N OF CEREBRAL VESSELS R4781 SLURRED 04-03-2015 [facility] SPEECH SERV FOUNDATION R531 WEAKNESS 04-03-2015 [facility] L73159 OTHER 04-02-2015 [facility] CATARACT FOUND[facility] RIGHT EYE 4571 OTHER 12-22-2014 [facility] NONINFECTIO [facility] US INC LYMPHEDEMA V571 OTHER 12-22-2014 [facility] PHYSICAL [facility] THERAPY INC 7906 OTHER 11-15-2014 [facility] ABNORMAL [facility] BLOOD INC CHEMISTRY 80790 UNSPEC 2013 LIAN KAYCE EPILEPSY WITHOUT MENTION INTRACT EPILEPSY 7823 EDEMA 2013 LIAN DEVRIES 63652 OBESITY, 10-19-2013 [facility] UNSPECIFIED [facility] H[facility]PITAL 68825 NUCLEAR 10-19-2013 [facility] SCLEROSIS SERV FOUNDATIO 3669 UNSPECIFIED 10-19-2013 [facility] [place] [address] OSTEOARTHRO 10-19-2013 [facility] S UNSPEC [facility]ITY WHETHER HOSPITAL GEN/LOC UNSPEC SITE V140 PERSONAL 10-19-2013 [facility] HISTORY OF COMMUNITY ALLERGY TO HOSPITAL PENICILLIN V5869 LONG-TERM 10-19-2013 [facility] (CURRENT) [facility] USE OF HOSPITAL OTHER MEDICATIONS V8539 BODY MASS 10-19-2013 [facility] INDEX COMMUNITY 39.0-39.9 HOSPITAL ADULT 30782 TOTAL OR 09-14-2013 [facility] SERV SENILE FOUNDATIO CATARACT 87178 OTHER 09-14-2013 [facility] CONVULSIONS [facility] [address] OTHER 08-01-2013 ARNOLD KAYCE MALAISE [facility] FATIG[facility] Medications Na ND Rx Da Fi Fi Am Da Di Ph RX Ph St me C No te ll ll ou ys ag ar # ys at rm s nt no ma ic us Or Da si cy ia de te s n re d PI 00 09 10 60 30 00 TX Ac RO 37 -0 -0 .0 00 L- ti XI 80 9- 6- 00 07 MA ve CA 46 20 20 48 RT M 60 17 17 63 10 1 13 PH AR MG MA CY CA PS #5 UL 91 E AL 00 08 09 60 30 00 TX Ac LE 11 -2 -1 .0 00 L- ti RG 32 0- 5- 00 08 MA ve Y- 01 20 20 84 RT CO 36 17 17 03 NG 0 18 PH ES AR TI MA ON CY RL #5 F 91 12 H TA B AR 00 08 09 12 30 00 TX Ac IM 59 -1 -0 0. 00 L- ti ID 15 1- 8- 00 07 MA ve ON 32 20 20 0 50 RT E 10 17 17 34 25 1 41 PH 0 AR MG MA CY TA BL #5 ET 91 LE 31 08 09 60 30 00 TX Ac VE 72 -0 -0 .0 00 [...] 1 40 PH CE AR TA MA OH CY NO PH #5 EN 91 5- 32 5 PI 00 08 09 60 30 00 TX Ac RO 37 -0 -0 .0 00 [...] FU 69 07 08 90 90 00 TX Ac RO 31 -1 -1 .0 00 L- ti SE 50 8- 1- 00 07 MA ve OH 11 20 20 49 RT DE 71 17 17 93 0 76 PH 40 AR MA MG CY TA #5 BL 91 ET PI 00 08 60 30 00 TX Ac RO 37 -1 -0 .0 00 L- ti XI 80 0- 4- 00 07 MA ve CA 46 20 20 48 RT M 60 17 17 63 10 1 13 PH AR MG MA CY CA PS #5 UL 91 E AR 08 12 30 00 TX Ac IM 59 -0 -0 0. 00 [...] #5 F 91 12 H TA B AR 00 06 06 12 30 00 TX Ac IM 59 -0 -3 0. 00 [...] 00 5- 0- 00 07 MA ve AR 51 20 20 49 RT IL 40 [...] AL 00 05 06 60 30 00 TX Ac LE 11 -1 -0 .0 00 L- ti RG 32 7- 9- 00 08 MA ve Y- 01 20 20 83 RT CO 36 17 17 90 NG 0 71 PH ES AR TI MA ON CY RL #5 F 91 12 H TA B AR 00 05 06 12 30 00 WA Ac IM 59 -0 -0 0. 00 L- ti ID 15 9- 2- 00 07 MA ve ON 32 20 20 0 46 RT E 10 17 17 58 25 1 45 PH 0 AR MG MA CY TA BL #5 ET 91 PI 00 05 06 54 27 00 TX Ac RO 37 -0 -0 .0 00 [...] #5 F 91 12 H TA B AR 00 04 05 12 30 00 TX Ac IM 59 -0 -0 0. 00 L- ti ID 15 8- 5- 00 07 MA ve ON 32 20 20 0 46 RT E 10 17 17 58 25 1 45 PH 0 AR MG MA CY TA BL #5 ET 91 PI 00 04 04 54 27 00 TX Ac RO 37 -0 -2 .0 00 L- ti XI 80 2- 8- 00 07 MA ve CA 46 20 20 47 RT M 60 17 17 38 10 1 54 PH AR MG MA CY CA PS #5 UL 91 E PH 51 03 04 60 30 00 TX Ac EN 29 -2 -2 .0 00 L- ti OB 30 5- 1- 00 04 MA ve AR 62 20 20 52 RT BI 60 17 17 90 TA 1 97 PH L AR 32 MA .4 CY MG #5 91 TA BL ET LI 54 03 04 90 90 00 TX Ac SI 45 -1 -1 .0 00 L- ti NO 80 6- 4- 00 07 MA ve AR 99 20 20 45 RT IL 71 17 17 73 0 79 PH 10 AR MA MG CY TA #5 BL 91 ET AL 00 03 04 60 30 00 TX Ac LE 11 -1 -1 .0 00 L- ti RG 32 6- 4- 00 08 MA ve Y- 01 20 20 83 RT CO 36 17 17 74 NG 0 84 PH ES AR TI MA ON CY RL #5 F 91 12 H TA B FU 00 03 04 90 90 00 TX Ac RO 78 -1 -0 .0 00 L- ti SE 11 0- 7- 00 07 MA ve OH 96 20 20 42 RT DE 61 17 17 49 0 13 PH 40 AR MA MG CY TA #5 BL 91 ET PI 29 03 03 60 30 00 TX Ac RO 03 -0 -3 .0 00 L- ti XI 30 2- 1- 00 07 MA ve CA 01 20 20 47 RT M 20 17 17 38 10 1 54 PH AR MG MA CY CA PS #5 UL 91 E AR 00 03 03 12 30 00 TX Ac IM 59 -0 -3 0. 00 L- ti ID 15 7- 1- 00 07 MA ve ON 32 20 20 0 46 RT E 10 17 17 58 25 1 45 PH 0 AR MG MA CY TA BL #5 ET 91 PH 51 02 03 60 30 00 TX Ac EN 29 -1 -1 .0 00 L- ti OB 30 2- 0- 00 04 MA ve AR 62 20 20 52 RT BI 60 17 17 90 TA 1 97 PH L AR 32 MA .4 CY MG #5 91 TA BL ET AR 00 02 03 90 30 00 TX Ac ED 14 -0 -1 .0 00 L- ti NI 39 9- 0- 00 07 MA ve SO 74 20 20 46 RT NE 01 17 17 96 5 0 82 PH AR MG MA CY TA BL #5 ET 91 AL 00 02 03 60 30 00 TX Ac LE 11 -1 -1 .0 00 L- ti RG 32 4- 0- 00 08 MA ve Y- 01 20 20 83 RT CO 36 17 17 74 NG 0 84 PH ES AR TI MA ON CY RL #5 F 91 12 H TA B PH 65 02 03 12 30 00 TX Ac EN 16 -0 -0 0. 00 L- ti YT 20 6- 3- 00 07 MA ve OI 21 20 20 0 46 RT N 25 17 17 58 SO 0 79 PH D AR EX MA T CY 10 0 #5 MG 91 CA P AR 00 02 03 12 30 00 TX Ac IM 59 -0 -0 0. 00 L- ti ID 15 6- 3- 00 07 MA ve ON 32 20 20 0 46 RT E 10 17 17 58 25 1 45 PH 0 AR MG MA CY TA BL #5 ET 91 AR 00 01 02 90 30 00 TX Ac ED 14 -1 -1 .0 00 L- ti NI 39 2- 0- 00 07 MA ve SO 74 20 20 45 RT NE 01 17 17 70 5 0 00 PH AR MG MA CY TA BL #5 ET 91 PH 65 01 02 12 30 00 TX Ac EN 16 -1 -1 0. 00 L- ti YT 20 4- 0- 00 07 MA ve OI 21 20 20 0 45 RT N 25 17 17 86 SO 0 80 PH D AR EX MA T CY 10 0 #5 MG 91 CA P PH 51 01 02 60 30 00 TX Ac EN 29 -1 -1 .0 00 L- ti OB 30 5- 0- 00 04 MA ve AR 62 20 20 52 RT BI 60 17 17 90 TA 1 39 PH L AR 32 MA .4 CY MG #5 91 TA BL ET AR 00 12 01 12 30 00 WA [...] PH 65 12 01 12 30 00 TX Ac EN 16 -1 -1 0. 00 L- ti YT 20 5- 3- 00 07 MA ve OI 21 20 20 0 45 RT N 25 16 17 86 SO 0 80 PH D AR EX MA T CY 10 0 #5 MG 91 CA P LI 54 12 01 90 90 00 TX Ac SI 45 -0 -0 .0 00 L- ti NO 80 8- 9- 00 07 MA ve AR 99 20 20 45 RT IL 71 16 17 73 0 79 PH 10 AR MA MG CY TA #5 BL 91 ET Procedures Procedure DOS Code Location Performer Comment [facility] [address] [facility] 7 JR JR XM&EVAL INTERMEDI ATE ESTAB PT CT THORAX 02446 [facility] W/O 7 HEALTHCAR HEALTHCAR CONTRAST E E MATERIAL [facility] COLLECTIO 96131 [facility] N VENOUS 6 [facility]ALTH[facility] HEALTHCAR BLOOD E E VENIPUNCT [facility] URE CALCIUM 92374 [facility]ONIZED [facility] [place] [address] [facility] THYROID 6 [facility] STIMULATI E E NG [facility] [address] [facility] MAGNESIUM 6 [facility] [place] [address] [facility] PARATHORM 6 [facility] [place] [address] [facility] PHOSPHORU 6 [facility] S E E [facility] [place] [address] [facility] SOMATOMED 6 [facility] IN E E HOSPITALS HOSPITALS RADEX 45779 [facility] HAND 2 6 Y Y VIEWS [facility] RADEX 51725 [facility] UN[facility] HIPS 6 Y Y BILATERAL [facility] WITH PELVIS 2 VIEWS PROTEIN 41345 [facility] UN[facility]ERS ELECTROPH 6 Y Y ORETIC [facility] FRACTJ&QU ANTJ SERUM PROTEIN 51878 [facility] ELECTROP 6 Y Y FXJ&SHAILA [facility] [place] [address] [facility] ALDOLASE 6 Y Y HOSPITAL HOSPITAL CREATINE 75225 [facility] UNIVERS KINASE 6 Y Y TOTAL [facility] SEDIMENTA 16788 [facility] TION RATE 6 Y Y RBC [facility] AUTOMATED PROTEIN 67029 [facility] TOTAL 6 Y Y XCPT [facility] REFRACTOM ETRY URINE RADIOLOGI 56945 [facility] UNIVERS C 6 Y Y EXAMINATI [facility] ON KNEE 1/2 VIEWS RADEX 72130 [place] [facility] WRIST 2 6 MEDICAL HENRRY VIEWS SERV FOUNDATIO N RADEX 36665 [facility] ANKLE 6 Y Y COMPLETE [facility] MINIMUM 3 VIEWS RADEX 11375 [facility] FOOT 6 Y [facility] MINIMUM 3 VIEWS RADEX 69504 [facility] SPINE 6 Y Y LUMBOSACR [facility] AL 2/3 VIEWS COLLECTIO 86918 [facility] N VENOUS 6 Y Y BLOOD [facility] VENIPUNCT URE C-REACTIV 65906 [facility] E PROTEIN 6 Y Y HOSPITAL HOSPITAL RADIOLOGI 38597 [facility] C EXAM 6 Y Y CHEST 2 [facility] VIEWS FRONTAL&L ATERAL RADIOLOGI 94000 [facility] C EXAM 6 Y Y SACROILIA [facility] C JOINTS 3/MORE VIEWS RADEX 13340 [facility] SHOULDER 6 Y [facility] MINIMUM 2 VIEWS BLOOD 43930 [facility] COUNT 6 Y Y COMPLETE [facility] AUTO&AUTO DIFRNTL WBC URNLS DIP 16433 [facility] UNIVERS 6 Y Y STICK/TAB HOSPITAL HOSPITAL LET REAGENT AUTO MICROSCOP Y BLOOD 42539 [facility] COUNT 6 Y Y COMPLETE HOSPITAL HOSPITAL AUTO&AUTO DIFRNTL WBC RHEUMATOI 89451 [facility] D FACTOR 6 Y Y QUANTITAT [facility] MATTY HEPATITIS 08610 [facility] C [facility] SYPHILIS 62657 [facility] TEST 6 Y Y NON-TREPO [facility] NEMAL ANTIBODY QUAL C-REACTIV 14383 [facility] E PROTEIN 6 Y Y HOSPITAL HOSPITAL COMPREHEN 10296 [facility] SIVE 6 Y Y METABOLIC [facility] PANEL COLLECTIO 63207 [facility] N VENOUS 6 Y Y BLOOD [facility] VENIPUNCT URE COMPLEMEN 76264 [facility] T ANTIGEN 6 Y Y EACH [facility] COMPONENT CYCLIC 19473 [facility] CITRULLIN 6 Y Y ATED [facility] PEPTIDE ANTIBODY EXTRACTAB 45396 [facility] LE 6 Y Y NUCLEAR [facility] ANTIGEN ANTIBODY ANY METHOD HEPATITIS 89668 [facility] B CORE 6 Y Y [facility] [place] [address] [facility] HEPATITIS 6 Y Y B HOSPITAL [facility] SURFACE ANTIGEN ANTINUCLE 07099 [facility] AR 6 Y Y ANTIBODIE [facility] S LULA FLUORESCE 28144 [facility] NT 6 Y Y NONNFCT [facility] AGT ANTB SCREEN EA ANTIBODY SEDIMENTA 95388 [facility] UNIVERS TION RATE 6 Y Y RBC [facility] AUTOMATED URNLS DIP 97855 [facility] UNIVERS 6 Y Y STICK/TAB HOSPITAL HOSPITAL LET RGNT AUTO W/O MICROSCOP Y DUP-SCAN 31047 [facility] NUR XTR VEINS 6 [facility] INC INC UNILATERA L/LIMITED STUDY SEDIMENTA 43234 [facility] TION RATE 6 [facility] [place] [address] [facility] BLOOD/URI 6 [facility] C ACID [facility] ANTINUCLE 33246 [facility] AR 6 [facility] ANTIBODIE [facility] HOLDINGS S LULA COMPREHEN 33836 [facility] SIVE 6 [facility] METABOLIC HOLDINGS HOLDINGS PANEL C-REACTIV 57402 [facility] E PROTEIN 6 [facility] HOLDINGS RHEUMATOI 05092 [facility] D FACTOR 6 [facility] QUANTITAT HOLDINGS HOLDINGS MATTY BLOOD 90940 [facility] COUNT 6 [facility] COMPLETE HOLDINGS HOLDINGS AUTO&AUTO DIFRNTL WBC RADEX 95401 [facility] MYERS ALL ELBOW 2 6 MEDICAL VIEWS IMAGING ASS HEMOGLOBI 02877 Petey GUIDRYLA N 6 ARUNA FRAUSTO GLYCOSYLA PSC ISABELA A1C LIPID 17350 Petey Rios KILALEJANDRA PANEL 6 ARUNA TODD JEPetey PSC RADEX 67907 [facility] NUR ELBOW 6 [facility] COMPLETE INC INC MINIMUM 3 VIEWS THERAPEUT 25921 [facility] NUR IC 6 [facility] PROPHYLAC INC INC TIC/DX INJECTION SUBQ/IM UNCLASSIF J3490 [facility] NUR IED DRUGS 6 [facility] INC INC DRUG 90746 [facility] NUR SCREEN 6 [facility] QUANTITAT INC INC MATTY PHENYTOIN TOTAL COLLECTIO 66257 [facility]OM[facility] NUR N VENOUS 6 [facility] BLOOD INC INC VENIPUNCT URE ELECTROEN 62688 [place]- CEPHALOGR 6 MEDICAL [place] KAYLAH AM W/REC SERV AWAKE&ASL FOUNDATIO EEP N ANES 95411 COMMUNITY FEEBACK LOWER 6 ANESTH REE INTESTINE OF THE BLUE ENDOSCOPY DISTAL DUODENUM COLONOSCO 05489 [facility] NUR PY FLX DX 6 [facility] W/COLLJ INC INC SPEC WHEN PFRMD UNCLASSIF J3490 [facility] NUR IED DRUGS 6 [facility] INC INC DXA BONE 88077 [facility] 6 Y Y STUDY 1/> HOSPITAL HOSPITAL SITES AXIAL SKEL INJECTION A9585 [facility] 6 Y Y [facility] L 0.1 ML MRI BRAIN 02755 [facility] UNIVERS BRAIN 6 Y Y STEM W/O [facility] HOSPITAL W/CONTRAS T MATERIAL CYANOCOBA 46086 [facility] UN[facility]ERS HERNESTO 6 Y Y VITAMIN [facility] B-12 COLLECTIO 49979 [facility] N VENOUS 6 Y Y BLOOD [facility] VENIPUNCT URE DRUG 28060 [facility] SCREEN 6 Y [facility] PHENOBARB ITAL BLOOD 68872 [facility] UNIVERS COUNT 6 Y Y COMPLETE [facility] AUTOMATED COMPREHEN 89958 [facility] SIVE 6 Y Y [facility] PANEL DRUG 64838 [facility] SCREEN 6 Y Y [facility] MATTY PHENYTOIN TOTAL DRUG 83420 BO[facility] NUR SCREEN 6 [facility] QUANTITAT INC INC MATTY PHENYTOIN TOTAL COMPREHEN 21377 BO[facility] NUR SIVE 6 [facility] METABOLIC INC INC PANEL BLOOD 56654 [facility] NUR COUNT 6 [facility] COMPLETE INC INC AUTO&AUTO DIFRNTL WBC RADIOLOGI 43246 [facility] NUR C EXAM 6 [facility] CHEST 2 INC INC VIEWS FRONTAL&L ATERAL NATRIURET 25983 [facility]UR IC 6 [facility] PEPTIDE INC INC HEMOGLOBI 96508 [facility] NUR N 6 [facility] GLYCOSYLA INC INC ISABELA A1C COLLECTIO 12264 [facility]UR N VENOUS 6 [facility] BLOOD INC INC VENIPUNCT URE LOCM Q9967 [facility] [phone] 5 Y Y MG/ML HOSPITAL HOSPITAL IODINE CONCENTRA TION PER ML CREATINE 94776 [facility] NUR KINASE 5 [facility] TOTAL INC INC ECG 12851 [facility] NUR ROUTINE 5 [facility] ECG INC INC W/LEAST 12 LDS TRCG ONLY W/O I&[place] [address] BOOM NUR HEAD/BRAI 5 [facility] N W/O INC INC CONTRAST MATERIAL THROMBOPL 28775 BO[facility] NUR ASTIN 5 [facility] TIME INC INC PARTIAL PLASMA/WH OLE BLOOD CREATINE 57159 BOOM NUR KINASE MB 5 [facility] [place] [address] SARTHAK BRISAKINS ANGIOGRAP 5 [facility] HY NECK SERV W/CONTRAS FOUNDATIO T/NONCONT N RAST BLOOD 01558 [facility] NUR COUNT 5 [facility] COMPLETE INC INC AUTO&[place] [address] BOOM NUR TROPONIN 5 [facility] [place] [address] SARTHAK LUKINS ANGIOGRAP 5 [facility] HY HEAD SERV W/CONTRAS FOUNDATIO T/NONCONT N RAST RADIOLOGI 96502 BOOM NUR C EXAM 5 [facility] CHEST 2 INC INC VIEWS FRONTAL&L ATERAL ECG 29741 BOOM DIMAS ROUTINE 5 [facility] W/LEAST P 12 LDS I&R ONLY COMPREHEN 73760 BO[facility] NUR SIVE 5 [facility] METABOLIC INC INC PANEL GROUND A0425 [facility] AM[facility]ULANCE PER SERVICE SERVICE STATUTE MILE POST-W[facility]ES[facility] 44133 SARTHAK RINCON 5 MEDICAL JR LASER SERV SURGERY FOUNDATIO N MANUAL 13271 BOOM NUR THERAPY 5 [facility] TQS 1/> INC INC REGIONS EACH 15 MINUTES THERAPEUT 74770 BOOM NUR IC PX 1/> 5 [facility] AREAS INC INC EACH 15 MIN EXERCISES THERAPEUT 28584 BOOM NUR IC PX 1/> 5 [facility] INC EACH 15 MIN EXERCISES MANUAL 57626 [facility] THERAPY 5 [facility] TQS 1/> INC INC REGIONS EACH 15 MINUTES MANUAL 06182 [facility] N[facility] THERAPY 5 [facility] TQS 1/> INC INC REGIONS EACH 15 MINUTES THERAPEUT 87011 BOOM NUR IC PX 1/> 5 [facility] INC INC EACH 15 MIN EXERCISES THERAPEUT 04389 BOOM BOOM IC PX 1/> 5 [facility] AREAS INC INC EACH 15 MIN EXERCISES MANUAL 29213 BOOM [facility]OM THERAPY 5 [facility] TQS 1/> INC INC REGIONS EACH 15 MINUTES MANUAL 24510 BO[facility] BOOM THERAPY 5 [facility] TQS 1/> INC INC REGIONS EACH 15 MINUTES THERAPEUT 14968 BOOM NUR IC PX 1/> 5 [facility] AREAS INC INC EACH 15 MIN EXERCISES THERAPEUT 17947 BOOM NUR IC PX 1/> 5 [facility] AREAS INC INC EACH 15 MIN EXERCISES MANUAL 00244 BO[facility] BOOM THERAPY 5 [facility] TQS 1/> INC INC REGIONS EACH 15 MINUTES MANUAL 60099 BO[facility] THERAPY 5 [facility] TQS 1/> INC INC REGIONS EACH 15 MINUTES THERAPEUT 87625 BOOM STREETON IC PX 1/> 5 [facility] AREAS INC INC EACH 15 MIN EXERCISES MANUAL 62048 [facility] THERAPY 5 [facility] TQS 1/> INC INC REGIONS EACH 15 MINUTES ORTHOTIC 94156 BOOM NUR MGMT&GEOVANNI 5 [facility] [place] UXTR INC INC LXTR&/TRN K EA 15 MANUAL 41384 [facility] N[facility] THERAPY 5 [facility] TQS 1/> INC INC REGIONS EACH 15 MINUTES MANUAL 28770 [facility] N[facility] THERAPY 5 [facility] TQS 1/> INC INC REGIONS EACH 15 MINUTES MANUAL 43658 [facility] N[facility] THERAPY 5 [facility] TQS 1/> INC INC REGIONS EACH 15 MINUTES MANUAL [address]ON THERAPY 5 [facility] TQS 1/> INC INC REGIONS EACH 15 MINUTES PHYSICAL 55163 [facility] THERAPY 5 [facility] EVALUATIO INC INC N COLLECTIO 95189 [facility] NUR N VENOUS 5 [facility] [place] [address] [facility] N[facility] THYROID 5 [facility] ST[place] [address] BO[facility] N[facility] THYROXINE 5 [facility] TOTAL INC INC BLOOD 56697 BOOM BOOM COUNT 5 [facility] COMPLETE INC INC AUTO&AUTO DIFRNTL WBC HEMOGLOBI 91426 BOOM [facility] N 5 [facility] GLYCOSYLA INC INC ISABELA A1C LIPID 16389 [facility] N[facility] PANEL 5 [facility] INC INC COMPREHEN 50389 [facility] NUR SIVE 5 [facility] METABOLIC INC INC PANEL INJECTION [id number] [facility] [facility] 4 [facility] 0.1 MG RINGERS J7120 [facility] LACTATE 4 [facility] UP TO 1000 CC INJECTION [id number] [address] H[facility] INTRAVENO US INFUS 10 MG CATARACT [id number] [facility] ANESTHESI [address] [place] [facility] 4 ANESTHESI LENS A GROUP SURGERY PS ANESTHESI 76137 [facility] [place] SURE[place] A EYE 4 ANESTHESI KAYCE LENS A GROUP SURGERY PS CATARACT [id number] [facility] INJECTION J[address] [facility] HCL INTRAVENO US INFUS 10 MG RINGERS J7120 [facility] LACTATE 4 [facility] UP TO 1000 CC INJECTION J3010 [facility] FENTANYL 4 [facility]RATE [facility] 0.1 MG INJECTION J[address] [facility] HCL PER 1 MG INJECTION J2405 [address] ON HCL PER 1 MG Encounters Encounter Start End Date Code Location Performer Type Date OFFICE 17926 SARTHAK RICOEN 7 7 MEDICAL III T VISIT SERV 25 FOUNDATIO MINUTES N OFFICE 60401 OUTPATIEN 7 7 HEALTHCAR T VISIT 5 E MINUTES [facility] - 7 7 [facility] OUTPATIEN E T [facility]OSPITALS OFFICE 46964 SARTHAK RAMOSLER OUTPATIEN 7 7 MEDICAL T VISIT SERV 15 FOUNDATIO MINUTES N OFFICE 70469 A Gabriel FUENTES OUTPATIEN 7 7 ARUNA TODD T VISIT PSC 15 [facility] - 7 7 [facility] OUTPATIEN E T [facility]OSPITALS OFFICE 57791 SARTHAK RAMOSLER OUTPATIEN 7 7 MEDICAL T VISIT SERV 25 FOUNDATIO MINUTES [facility] V[facility] E [facility]UTES [facility] OFFICE 67553 SARTHAK LEERI OUTPATIEN 7 7 MEDICAL T VISIT SERV 25 FOUNDATIO MINUTES N OFFICE 15908 SARTHAK RAMOSLER OUTPATIEN 7 7 MEDICAL T VISIT SERV 25 FOUNDATIO MINUTES [facility] - 7 7 [facility] OUTPATIEN E T HOSPITALS OFFICE 01043 [facility] 7 7 HEALTHCAR T VISIT 5 E MINUTES [facility] OUTPATIEN E T [facility]OSPITALS OFFICE 79831 [facility] MAR T VISIT SERV 25 FOUNDATIO MINUTES [facility]OS[facility] - 6 6 [facility]CAR OUTPATIEN E [facility] UNIVERSIT - 6 6 [facility] 57446 [facility] 6 MEDICAL MAR T VISIT SERV 25 FOUNDATIO MINUTES N OFFICE 22836 SARTHAK PICKARD CONSULTAT 6 6 MEDICAL MAR ION SERV NEW/ESTAB FOUNDATIO PATIENT N 40 [facility] UNIVERSIT - 6 6 Y [facility] T OFFICE 28120 A Gabriel FUENTES OUTPATIEN 6 6 ARUNA FRAUSTO T VISIT PSC 15 [facility] BOOM - 6 6 [facility]IEN [facility] T [facility] - 6 6 [facility] OFF[facility] 12866 Petey FUENTES OUTPATIEN 6 6 ARUNA FRAUSTO T 30 PSC MINUTES HOSPITAL [facility]OM - 6 6 [facility] T EMERGENCY 87558 ANJANA CORLEY 6 6 PHYSICIAN U [facility] S, [facility] T VISIT MODERATE SEVERITY EMERGENCY 95383 BOOM 6 6 [facility] T VISIT LOW/MODER SEVERITY OFFICE 80659 [facility] OUT[facility] 6 6 PHYSICIAN NIRAV T VISIT S GROUP 15 MINUTES HOSPITAL BOOM - 6 6 [facility] T OFFICE 76541 [facility] OUTPATIEN 6 6 PHYSICIAN NIRAV T VISIT S GROUP 15 MINUTES [facility] BOOM - 6 6 [facility] T OFFICE 86717 [facility] 6 PHYSICIAN CAM T NEW 30 S GROUP MINUTES [facility] 21561 SARTHAK QUEEN OUTPATIEN 6 6 MEDICAL OSMAR T NEW 45 SERV MINUTES FOUNDATIO N OFFICE 84333 UNIVERSIT OUTPATIEN 6 6 Y T VISIT 5 HOSPITAL MINUTES OFFICE 79294 [facility] OUTPATIEN 6 6 PHYSICIAN NIRAV T VISIT S GROUP 15 MINUTES HOSPITAL BOOM - 6 6 [facility] OFFICE 64788 [facility] OUTPATIEN 6 6 PHYSICIAN NIRAV T VISIT S GROUP 25 MINUTES EMERGENCY 47275 ANJANA BRYANT DEPT 5 5 PHYSICIAN FOR VISIT [facility] HIGH SEVERITY& THREAT FUNCJ EMERGENCY 01017 BOOM 5 5 [facility] VISIT HIGH/URGE NT SEVERITY [facility] UNIVERSIT - 5 5 [facility] BOOM - 5 5 [facility] BOOM [facility] 5 5 [facility] BOOM - 5 5 [facility] OFFICE 50638 LIAN UNDERWOOD 4 4 KAYCE KAYCE T VISIT 15 MINUTES [facility] KRIS - 4 4 [facility] KRIS - 4 4 [facility] T OFFICE 19215 [facility] 4 KAYCE KAYCE T VISIT 15 MINUTES
--- OUTSIDE RECORDS SUMMARY | 2017-03-06 05:22 | External Medical Summary Rpt ---
Author Author [employer] Hummel, [employer] Organization [employer] Address Unknown Phone Unavailable
--- OUTSIDE RECORDS SUMMARY | 2017-03-06 05:22 | External Medical Summary Rpt | CCD ---
Demographics Preferred Language Persian Marital Status Unknown Christianity Affiliation Unknown Race Unknown Ethnic Group Unknown Author Author , PRADEEP FERNÁNDEZ Address Unknown Phone [email or web address] Immunization Name Date Rout CVX Reac Dose Comm Prov Is Faci e tion ent ider Refu lity Give sed n Td 03-0 9 999 Hist H149 No H149 (desiree 5-19 oric lt), 97 al Info adso rmat rbed ion - Sour ce Unsp ecif ied
--- OUTSIDE RECORDS SUMMARY | 2017-03-06 05:22 | External Medical Summary Rpt | CCD ---
Demographics Preferred Language Bulgarian Marital Status Unknown Hoahaoism Affiliation Unknown Race Unknown Ethnic Group Unknown Author Author , PRADEEP FERNÁNDEZ Address Unknown Phone .[employer] Immunization Name Date Rout CVX Reac Dose Comm Prov Is Faci e tion ent ider Refu lity Give sed n Td 03-0 9 999 Hist H149 No H149 (desiree 5-19 oric lt), 97 al Info adso rmat rbed ion - Sour ce Unsp ecif ied
== END 2017-03-02 15:05 | disposition short-term general hospital (02) ==
LOC: ER 12:41
PROVIDERS: Emergency Medicine
DX: R41.3 Other amnesia (principal); R56.9 Unspecified convulsions; R40.0 Somnolence; Z87.891 Personal history of nicotine dependence; I10 Essential (primary) hypertension; Z88.0 Allergy status to penicillin